=== PATIENT | male | born 1965 | race Caucasian/White ===

== ENCOUNTER → 2016-08-28 | Outpatient (CLI) | payer BC ==
[~2016-08-28] MED LIST: ASCA500 PO; CYAN10004 PO; METF500T5 PO; MULT-506 PO
[2016-08-28 13:15] LABS: ESTIMATED AVERAGE GLUCOSE 100 mg/dl; HA1C FLAG Normal (Normal)
== END | disposition home or self-care (01) ==
LOC: C.LABBFT 09:36
PROVIDERS: ATTEND Internal Medicine
DX: E11.65 Type 2 diabetes mellitus with hyperglycemia (principal)

== ENCOUNTER 2020-03-07 01:54 | Inpatient (IN) ==
[2020-03-07] MEDS ORDERED: ONDANSETRON INJ 2 MG/ML 2 ML VIAL IV STA (02:09)
[2020-03-07] MEDS ORDERED: HYDROmorphone INJ 1 MG/ML SYRINGE IV STA ×2 (02:09→04:20)
[2020-03-07] MEDS ORDERED: SODIUM CHLORIDE 0.9% 1000ML 1,000 ML IV ONE (02:09)
--- NOTE | 2020-03-07 02:15 | Emergency Department Note ---
Impression & Plan Calculus of proximal right ureter, Hydronephrosis, right, Intractable abdominal pain ED Provider Note Name: SUE GRAMAJO Age: 54 Sex: M Arrives Via: Walk-In Informant: Patient, ED Provider: Elías Corado MD Chief Complaint: Right flank pain Impression: Calculus of proximal right ureter Hydronephrosis, Right Intractable abdominal pain Medical Decision Making: Pleasant 54 yr old male with DMII, HTN, DARIO and remote renal colic history arrives acute severe right flank pain. CT obtained emergently with 11mm proximal ureteral stone with hydro. Requiring repetitive dosing of narcotics to get pain controlled. Labs good. No evidence infection nor dissection nor other acute intraabdominal issue. He will need hospitalization given intractable pain. Prior Medical Record and Triage/Nursing Notes reviewed by Me Additional history obtained from chart and Differentials:Renal colic, UTI, appendicitis, diverticulitis, mesenteric ischemia, aortic pathology, infections, inflammatory bowel disease, PUD, biliary pathology, as well as other pathologies. Vital Signs: reviewed and remarkable for HTN, improving with pain meds Interventions: Dilaudid 1mg IV x 2, Fentanyl 100mcg IV, Toradol 30mg IV, Zofran 4mg IV, NSS bolus Labs:Reviewed and remarkable for no significant abnormalities Imaging:[facility] Radiologist interpretation reviewed by me: 11mm prox right ureteral stone with right hydro Consults:Dr Bell Maier hospitalist Plan: Disposition:Hospitalization. Condition: Good Blood pressure:Normal.No Referral necessary Prescriptions:none PDMP: n/a History of Present Illness:54 male arrives for evaluation of right flank pain. Patient with history of DMII, HTN, DLP and remote history of renal colic. Notes 3 days ago had some mild fleeting right flank pain. Happened again a few times last few days. This evening severe sudden onset stabbing pain right flank. Radiates mildly RLQ. Associated nausea. No fevers, vomiting, cp, sob, cough, urinary/bowel changes, leg swelling, rashes nor other symptoms. No medications prior to arrival. Nothing makes better nor worse. Notes kidney stone several years ago though this seems worse than that. No history of aortic issues. Takes no blood thinners. Denies recent dehydration ROS: See above HPI for pertinent positives & negatives. A total of 10 systems reviewed and were otherwise negative. Past Medical History:DMII, HTN, DLP, Renal Colic Past Surgical History:Abdominal Hernia Repair Family History:Father DMII, Brother Renal Colic Social History:Lives with , retired, no tobacco/drugs, occasional etoh Home Medications:Vit C, Lisinopril, Metformin, Multivitamin, B-12 Allergies:NKDA Vitals:Blood Pressure: 203/113, Pulse 86, RR 18, T 37.2C, O2 97% on RA Physical Exam: GENERAL: Patient is very uncomfortable appearing and in severe distress. Pacing around room EYES: No scleral icterus, unremarkable pupils. ENT: Mucous membranes moist, no nasal congestion. NECK: No masses appreciated, nomeningismus, trachea is midline. RESPIRATORY: No dyspnea. Clear to auscultation and equal bilaterally. No wheeze, no rhonchi. CARDIOVASCULAR: Regular rate and rhythm.No murmurs, rubs, gallops appreciated. GASTROINTESTINAL: Abdomen soft, non-tender, no peritonitis.Bowel sounds positive.No masses appreciated. BACK: No midline tenderness, mild right CVA tenderness EXTREMITIES: Normal motion all extremities, no cyanosis, no edema. NEUROLOGIC: Alert and oriented, no acute motor or sensory deficits, no focal weakness, cranial nerves grossly intact. SKIN: No rash, no jaundice, no diaphoresis. PSYCH: Appropriate GCS: 15 ED Course: Times/Reassessments: Continue pain though does improve after meds Elías Corado MD Past Med/Surg History Medical History (Updated 03/07/20 @ 07:29 by Elías Corado MD) Right ankle sprain Surgical History H/O tooth extraction [place] teeth [phone] H/O umbilical hernia repair 2015 H/O vasectomy 1992 History of arthroscopic knee surgery left - 1997 S/P rotator cuff repair left- 2012 Family History Father Heart disease Diabetes Uncle Heart disease Myocardial infarction Grandfather Heart disease Brother Kidney stones Grandmother Breast cancer Social History Smoking Status: Former smoker Second Hand Exposure: Yes; Do You Dip or Chew Tobacco: No; Hx Alcohol Use: Yes Alcohol type: beer, wine and hard liquor Hx Substance Use: No Preferred Language: Spanish Communication Ability: Effective 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: No Beliefs That Will Affect Care: None marital status: Current Living Situation: Spouse current occupational status: retired current occupation: Retired [employer] Other Information That Helps Us Care for You: No Feels Safe at Home: Yes Safety Concerns: Feels Safe At This Time Allergies Allergies Allergy/AdvReac Type Severity Reaction Status Date / Time No Known Allergies Allergy Unverified 03/07/20 02:35 Home Meds Home Medications Medication Instructions Recorded Confirmed lancets #50 ea 10/09/19 10/09/19 lisinopril 10 mg PO DAILY 03/07/20 03/07/20 metformin 500 mg PO BID 03/07/20 03/07/20 multivitamin [Multiple Vitamin] 1 tab PO DAILY 03/07/20 03/07/20 sildenafil (pulm.hypertension) See Rx Instructions .ROUTE .COMPLEX 03/07/20 03/07/20 Results & Data (ED) Vital Signs Vital Signs - 24 hr 03/07/20 01:57 03/07/20 03:24 03/07/20 04:27 Temperature 37.2 C Temperature Source Oral Pulse Rate 86 Pulse Rate [Finger] 92 H 85 Pulse Rhythm Regular Pulse Strength Normal Respiratory Rate 18 18 18 Respiratory Effort / Characteristics Non-Labored Spontaneous Respiratory Depth Normal Respiratory Pattern Regular Blood Pressure 203/113 H Blood Pressure [Right Arm] 152/87 H 151/94 H Blood Pressure Mean 143 Blood Pressure Mean [Right Arm] 108 113 Blood Pressure Position Standing Pulse Oximetry 97 96 96 Oxygen Delivery Method Room Air Room Air Room Air Sepsis Recent Fever Within 48 Hours No Sepsis New/Unexplained Change in Mental Status No Sepsis Action Taken by Nursing No Action Required Laboratory Data Result diagrams: 03/07/20 02:13 03/07/20 02:13 Lab Results 03/07/20 03/07/20 03/07/20 Range/Units 02:13 02:13 03:50 WBC 6.81 (4.8-10.8) K/uL RBC 4.31 L (4.7-6.1) M/uL Hgb 14.5 (14.0-18.0) g/dL Hct 42.4 (42-52) % MCV 98.4 (80-100) fL MCH 33.6 (25-34) pg MCHC 34.2 (32-36) g/dL RDW Std Deviation 45.6 (36.4-46.3) fL RDW Coeff of Sabine 12.6 (11.5-14.5) % Plt Count 223 (130-400) K/uL MPV 9.8 (7.4-10.4) fL Immature Gran % (Auto) 0.1 % Neut % (Auto) 46.3 % Lymph % (Auto) 41.7 % Chambers % (Auto) 8.1 % Eos % (Auto) 3.5 % Baso % (Auto) 0.3 % Neut # (Auto) 3.15 (1.4-6.5) K/uL Lymph # (Auto) 2.84 (1.2-3.4) K/uL Chambers # (Auto) 0.55 (0.11-0.59) K/uL Eos # (Auto) 0.24 (0-0.5) K/uL Baso # (Auto) 0.02 (0-0.2) K/uL Immature Gran # (Auto) 0.01 (0.00-0.02) K/uL Sodium 140 (136-145) mmol/L Potassium 4.2 (3.5-5.1) mmol/L Chloride 106 (98-107) mmol/L Carbon Dioxide 30 (21-32) mmol/L Anion Gap 4.0 (3-11) BUN 18 (7-18) mg/dl Creatinine 1.36 (0.6-1.4) mg/dl Est Cr Clr Drug Dosing 74.0 ml/min Est GFR ( Amer) 67.9 Est GFR (Non-Af Amer) 58.6 BUN/Creatinine Ratio 13.0 (10-20) Glucose 185 H (70-99) mg/dl Calcium 9.1 (8.5-10.1) mg/dl Total Bilirubin 0.5 (0.2-1) mg/dl Direct Bilirubin (0-0.2) mg/dl AST 46 H (15-37) U/L ALT 70 (12-78) U/L Alkaline Phosphatase 90 (45-117) U/L Total Protein 8.1 (6.4-8.2) gm/dl Albumin 4.0 (3.4-5.0) gm/dl Lipase 159 (73-393) U/L Specimen Hemolysis Urine Color Yellow Urine Appearance Clear (Clear) Urine pH 5.5 (4.5-7.5) Ur Specific [place] 1.022 (1.000-1.030) Urine Protein 1+ H (Negative) Urine Glucose (UA) Negative (Negative) Urine Ketones Trace H (Negative) Urine Blood 3+ H (Negative) Urine Nitrite Negative (Negative) Urine Bilirubin Negative (Negative) Urine Urobilinogen Negative (Negative) Ur Leukocyte Esterase Negative (Negative) Urine WBC (Auto) 1-5 (0-5) /hpf Urine RBC (Auto) 10-30 H (0-4) /hpf U Hyaline Cast (Auto) 0 (0-5) /lpf U Epithel Cells (Auto) 0-5 (0-5) /lpf Urine Bacteria (Auto) Negative (Negative) Administered Medications Sodium Chloride (Nss 1000ml) 1,000 mls @ 125 mls/hr IV .Q8H GRZEGORZ Stop: 04/06/20 05:02 Last Admin: 03/07/20 05:44 Dose: 125 mls/hr Documented by: [id number] Insulin Aspart (Insulin Aspart 100 Units/Ml 3 Ml Pen) 0 units SC Q6 GRZEGORZ Stop: 04/06/20 05:59 Last Admin: 03/07/20 06:20 Dose: 2 units Documented by: [id number] Cosigned by: [id number] Discontinued Medications Fentanyl Citrate (Fentanyl Citrate 100 Mcg/2 Ml Vial) 100 mcg IV NOW STA Stop: 03/07/20 02:38 Last Admin: 03/07/20 02:42 Dose: 100 mcg Documented by: [id number] Hydromorphone HCl (Hydromorphone Inj 1 Mg/Ml Syringe) 1 mg IV NOW STA Stop: 03/07/20 02:10 Last Admin: 03/07/20 02:15 Dose: 1 mg Documented by: [id number] Hydromorphone HCl (Hydromorphone Inj 1 Mg/Ml Syringe) 1 mg IV NOW STA Stop: 03/07/20 04:21 Last Admin: 03/07/20 04:26 Dose: 1 mg Documented by: [id number] Sodium Chloride (Nss 1000ml) 1,000 mls @ 999 mls/hr IV .Q1H1M ONE Stop: 03/07/20 03:09 Last Infusion: 03/07/20 03:26 Dose: 0 mls/hr Documented by: [id number] Admin: 03/07/20 02:15 Dose: 999 mls/hr Documented by: [id number] Sodium Chloride (Nss 1000ml) 1,000 mls @ 125 mls/hr IV .Q8H GRZEGORZ Stop: 04/06/20 03:59 Last Infusion: 03/07/20 05:00 Dose: 0 mls/hr Documented by: [id number] Admin: 03/07/20 04:12 Dose: 125 mls/hr Documented by: [id number] Ketorolac Tromethamine (Ketorolac 30 Mg/Ml Vial) Confirm Administered Dose 30 mg .ROUTE .STK-MED ONE Stop: 03/07/20 03:04 Last Admin: 03/07/20 03:05 Dose: 30 mg Documented by: [id number] Ondansetron HCl (Ondansetron Inj 2 Mg/Ml 2 Ml Vial) 4 mg IV NOW STA Stop: 03/07/20 02:10 Last Admin: 03/07/20 02:15 Dose: 4 mg Documented by: [id number] Discharge Plan Visit Data Chief Complaint: Flank Pain ED Provider: Elías Corado Discharge Problem: Calculus of proximal right ureter, Hydronephrosis, right, Intractable abdominal pain Patient Disposition: Admitted As Inpatient Discharge Instructions Interventions: ED Discharge Assessment Last Done: 03/07/20 04:48
[2020-03-07 02:20] LABS: Basophils # (auto) 0.02 K/uL (0-0.2); Basophils % (auto) 0.3 %; Eosinophils # (auto) 0.24 K/uL (0-0.5); Eosinophils % (auto) 3.5 %; Hematocrit (blood only) 42.4 % (42-52); Hemoglobin 14.5 g/dL (14.0-18.0); Immature Granulocytes # (auto) 0.01 K/uL (0.00-0.02); Immature Granulocytes % (auto) 0.1 %; Lymphocytes # (auto) 2.84 K/uL (1.2-3.4); Lymphocytes % (auto) 41.7 %; Mean Corpuscular Hemoglobin 33.6 pg (25-34); Mean Corpuscular Hgb Conc 34.2 g/dL (32-36); Mean Corpuscular Volume 98.4 fL (80-100); Mean Platelet Volume 9.8 fL (7.4-10.4); Monocytes # (auto) 0.55 K/uL (0.11-0.59); Monocytes % (auto) 8.1 %; Neutrophils # (auto) 3.15 K/uL (1.4-6.5); Neutrophils % (auto) 46.3 %; Platelet Count 223 K/uL (130-400); RDW Coefficient of Variation 12.6 % (11.5-14.5); RDW Standard Deviation 45.6 fL (36.4-46.3); Red Blood Count 4.31 M/uL (4.7-6.1); White Blood Count 6.81 K/uL (4.8-10.8)
[2020-03-07] MEDS ORDERED: fentaNYL citrate 100 MCG/2 ML VIAL IV STA (02:37)
[2020-03-07 03:00] LABS: Bilirubin,Total 0.5 mg/dl (0.2-1); Calcium 9.1 mg/dl (8.5-10.1); Est GFR (African American) 67.9; Est GFR (Non-African American) 58.6; Potassium 4.2 mmol/L (3.5-5.1); Total Protein 8.1 gm/dl (6.4-8.2)
[2020-03-07] MEDS ORDERED: KETOROLAC 30 MG/ML VIAL ONE (03:03)
[2020-03-07 03:58] LABS: Appearance Urine Clear (Clear); Bacteria Urine Automated Negative (Negative); Bilirubin Urine Negative (Negative); Blood Urine 3+ (Negative); Cast Urine Automated 0 /lpf (0-5); Color Urine Yellow; Epithelial Cell Urine Auto 0-5 /lpf (0-5); Glucose Urine UA Negative (Negative); Ketones Urine Trace (Negative); Leukocyte Esterase Urine Negative (Negative); Nitrite Urine Negative (Negative); Protein Urine 1+ (Negative); Specific Gravity Urine 1.022 (1.000-1.030); Urobilinogen Urine Negative (Negative); pH Urine 5.5 (4.5-7.5)
[2020-03-07] MEDS ORDERED: SODIUM CHLORIDE 0.9% 1000ML 1,000 ML IV SCH (04:00)
[2020-03-07] MEDS ORDERED: ONDANSETRON INJ 2 MG/ML 2 ML VIAL IV PRN ×2 (05:03→11:05)
[2020-03-07] MEDS ORDERED: HYDROmorphone INJ 0.5 MG/0.5 ML SYR IV PRN (05:03)
[2020-03-07] MEDS ORDERED: ACETAMINOPHEN 325 MG TAB PO PRN (05:03)
[2020-03-07] MEDS ORDERED: KETOROLAC TROMETHAMINE 15 MG/ML VIAL IV PRN (05:03)
[2020-03-07] MEDS ORDERED: POLYETHYLENE (MIRALAX) 17 GM PACK PO PRN (05:03)
[2020-03-07] MEDS ORDERED: GLUCAGON FOR INJ 1 MG VIAL SQ PRN (05:30)
[2020-03-07] MEDS ORDERED: GLUCOSE 40% GEL 15 GM TUBE PO PRN (05:30)
[2020-03-07] MEDS ORDERED: GLUCOSE 10 TABS/TUBE PO PRN (05:30)
[2020-03-07] MEDS ORDERED: DEXTROSE 50% 50 ML SYRINGE IV PRN (05:30)
[2020-03-07] MEDS ORDERED: CARBOHYDRATES FOR HYPOGLYCEMIA PO PRN (05:30)
--- NOTE | 2020-03-07 05:34 | History and Physical Report ---
DATE OF ADMISSION: 03/07/2020 CHIEF COMPLAINT: Right flank pain. HISTORY OF PRESENT ILLNESS: This is a 54-year-old male with past medical history significant for type 2 diabetes, hypertension, obesity, history of kidney stones, who presents with a severe right flank pain and found to have kidney stone. The patient says since last he is having right flank pain on and off, but tonight he woke up with severe pain, could not stand it, so came to the ER. He had an episode of vomiting with the pain. With the pain medications and antiemetics, his symptoms improved. Currently resting comfortably and hemodynamically stable. Denies any fever, chills. No burning micturition, no hematuria. Normal bowel and bladder movements. No blood in the stools or black stools. Denies any headache, no dizziness, no blurred visions, no earache, no runny nose, no sore throat, no cough, no shortness of breath, no chest pain, no rash. Ambulates okay. ALLERGIES: No known drug allergies. PAST MEDICAL HISTORY: As mentioned above. PAST SURGICAL HISTORY: Arthroscopy of the left joint, oral surgery, left repair of shoulder cuff avulsion. MEDICATIONS: The patient is on lisinopril 10 mg p.o. daily, metformin 500 mg p.o. b.i.d. FAMILY HISTORY: Significant for brother had diabetes; father has diabetes, heart disease; maternal grandfather has diabetes; paternal grandfather has heart disease. SOCIAL HISTORY: , lives his with . Former smoker, smoked an average of 1 pack a day for 2 years. Alcohol, 7 drinks of alcohol per week. No drug use. REVIEW OF SYSTEMS: As per HPI. Rest of the review of systems negative. PHYSICAL EXAMINATION: GENERAL: The patient is obese, not in acute distress. VITAL SIGNS: Temperature 37.2, pulse 85, respiratory rate 18, blood pressure 151/94, and oxygen 96% on room air. HEENT: Pupils are equal, round, and reactive to light. NECK: No JVD, no neck masses. No carotid bruits. CARDIOVASCULAR: S1, S2 heard, regular rate and rhythm, no murmur, no gallop. RESPIRATORY SYSTEM: Normal AP diameter. No accessory muscle use. No wheezing, no crackles. ABDOMEN: Soft, bowel sounds present, nontender. No distention, no CVA tenderness. CENTRAL NERVOUS SYSTEM: Cranial nerves II-XII grossly intact. Nonfocal. EXTREMITIES: No edema, no erythema. LABORATORY DATA: WBC 6.8, hemoglobin 14.5, hematocrit 42.4, platelets 223. Sodium 140, potassium 4.2, chloride 106, bicarbonate 30, BUN 18, creatinine 1.3, serum glucose 185, calcium 9.1, total bilirubin 0.5, AST 46, ALT 70, alkaline phosphatase 90, lipase 159. Urinalysis, +3 blood. IMAGING DATA: CT of abdomen and pelvis, preliminary report shows 11 mm calculus in the upper ureteropelvic junction and mild hydronephrosis, nonobstructing 6 mm left renal calculus, 1.5 cm left adrenal gland myelolipoma. ASSESSMENT AND PLAN: This is a 54-year-old male who presents with right renal colic. 1. Right renal colic, a 11 mm right uteropelvic junction stone with mild hydronephrosis on the preliminary report of CAT scan. History of kidney stones in the past. UA does not show any infection, afebrile, hemodynamically stable. We will empirically put him on IV Rocephin, IV fluids, IV antiemetics, IV Dilaudid p.r.n., n.p.o. Consult urology for further recommendation. 2. Diabetes. Hold metformin. Placed on insulin sliding scale. Follow HbA1c level. Follow the blood sugars. 3. Hypertension. Continue lisinopril. 4. Obesity, needs counseling. 5. Deep venous thrombosis prophylaxis, sequential compression devices. DISPOSITION: Admit to medical floor. Expect to discharge home and follow with family doctor. Level 1 full code. MTDD
[2020-03-07] MEDS: SODIUM CHLORIDE 0.9% 1000ML 1,000 ML IV SCH ×2 (05:44→12:26)
[2020-03-07] MEDS ORDERED: Nursing to Pharmacy Communication SCH (05:45)
[2020-03-07] MEDS ORDERED: CIPROFLOXACIN / D5W 400 MG/200 ML BAG IV SCH (06:00)
[2020-03-07] MEDS: INSULIN ASPART 100 UNITS/ML 3 ML PEN SC SCH ×2 (06:20→12:23)
[2020-03-07] MEDS ORDERED: INSULIN ASPART 100 UNITS/ML 3 ML PEN SC SCH (07:30)
--- NOTE | 2020-03-07 08:35 | CT Scan Report ---
CT OF THE ABDOMEN AND PELVIS WITHOUT CONTRAST CLINICAL HISTORY: Right flank pain COMPARISON STUDY: CT of the abdomen and pelvis June 06, 2009. KUB July 06, 2009. TECHNIQUE: Axial images of the abdomen and pelvis were obtained without IV contrast. Images were revi ewed in the axial, sagittal, and coronal planes. Automated exposure control was utilized for the michael dy. A dose lowering technique was utilized adhering to the principles of ALARA. FINDINGS: A left lower lobe pulmonary nodule is unchanged since CT of June 06, 2009. This is blanca gn given stability. 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 A 1.1 cm calculus within t he upper moiety ureteropelvic junction results in mild right hydronephrosis. Note is made of a 6 mm c alculus within lower pole of the left kidney. A 1.6 cm left adrenal myelolipoma is unchanged. The rig ht adrenal gland, spleen and pancreas are unremarkable on unenhanced exam. Fatty infiltration of the liver is noted. There is no evidence for a bowel obstruction. The appendix is normal. Findings consis tent with umbilical hernia repair with mesh are noted. No evidence for a bowel obstruction. There are no suspicious osseous lesions. IMPRESSION: 1. Partially duplicated right renal collecting system with 1.1 cm calculus within the upper moiety ur eteropelvic junction which results in mild hydronephrosis. 2. 6 mm left renal calculus. 3. Fatty infiltration of the liver. ACT 112: Negative or not required by law. Electronically signed by: Obed Gooden M.D. 03/07/2020 8:33 AM
[2020-03-07] MEDS ORDERED: lisinopriL 10 MG TAB PO SCH (09:00)
[2020-03-07] MEDS ORDERED: MULTIVITAMIN TAB PO SCH (09:00)
[2020-03-07] MEDS ORDERED: cefTRIAXone SODIUM 2,000 MG in DEXTROSE 5% 50 ML IV SCH (09:00)
--- NOTE | 2020-03-07 09:58 | Urology Consultation ---
Date of Consultation March 07, 2020 Assessment & Plan (1) Calculus of proximal right ureter: 11 mm obstructing right proximal ureteral calculus Plan for cystoscopy right ureteral stent insertion now Cover with ciprofloxacin Likely discharge home this afternoon with possible outpatient surgery later in the week for definitive stone treatment History of Present Illness Attending Physician: Stephanie Nuno MD History of Present Illness 54-year-old diabetic male with a remote history of kidney stones who returned to the ER overnight with severe right renal colic Imaging revealed an 11 mm right UPJ calculus as well as a nonobstructive 6 mm left lower pole calculus He has a creatinine of 1.36 He is afebrile and hemodynamically stable He continues to have severe pain and nausea He has never previously required surgery for his kidney stones Allergies Allergy/AdvReac Type Severity Reaction Status Date / Time No Known Allergies Allergy Unverified 03/07/20 02:35 Home Medications Home Medications Medication Instructions Recorded Confirmed Type lancets #50 ea 10/09/19 10/09/19 History lisinopril 10 mg PO DAILY 03/07/20 03/07/20 History metformin 500 mg PO BID 03/07/20 03/07/20 History multivitamin [Multiple Vitamin] 1 tab PO DAILY 03/07/20 03/07/20 History sildenafil (pulm.hypertension) See Rx Instructions .ROUTE .COMPLEX 03/07/20 03/07/20 History Patient History Medical History (Updated 03/07/20 @ 09:56 by Jared Cárdenas MD) Recurrent kidney stones Right ankle sprain Surgical History H/O tooth extraction [place] teeth [phone] H/O umbilical hernia repair 2015 H/O vasectomy 1992 History of arthroscopic knee surgery left - 1997 S/P rotator cuff repair left- 2012 Family History Father Heart disease Diabetes Uncle Heart disease Myocardial infarction Grandfather Heart disease Brother Kidney stones Grandmother Breast cancer Social History Smoking Status: Former smoker Second Hand Exposure: Yes; Do You Dip or Chew Tobacco: No; Hx Alcohol Use: Yes Alcohol type: beer, wine and hard liquor Hx Substance Use: No Preferred Language: Mohawk Communication Ability: Effective Oracle Fusion 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 Required: No Beliefs That Will Affect Care: None marital status: Current Living Situation: Spouse current occupational status: retired 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 Other Information That Helps Us Care for You: No Feels Safe at Home: Yes Safety Concerns: Feels Safe At This Time Review of Systems Constitutional: no fever, no chills and no fatigue Eyes: no worsening vision Ear, Nose, Mouth, Throat: no facial pain and no pain with swallowing Respiratory: no cough and no dyspnea Cardiovascular: no chest pain and no palpitations Gastrointestinal: + abdominal pain and + nausea; no vomiting Genitourinary: no dysuria and no hematuria Musculoskeletal: no back pain Integumentary: no rash and no urticaria Neurologic: no gait abnormality and no unsteadiness Psychiatric: no behavioral changes and no depression Endocrine: no fatigue Results & Data ([facility]) Vital Signs (Past 12 Hours) Vital Signs Temp Pulse Pulse Resp BP BP BP 03/07/20 07:39 36.6 C 89 16 147/84 H 03/07/20 05:12 36.8 C 162/92 H 03/07/20 05:00 36.8 C 71 14 162/92 H 03/07/20 04:27 85 18 151/94 H 03/07/20 03:24 92 H 18 152/87 H 03/07/20 01:57 37.2 C 86 18 203/113 H Pulse Ox 03/07/20 07:39 96 03/07/20 05:12 03/07/20 05:00 94 03/07/20 04:27 96 03/07/20 03:24 96 03/07/20 01:57 97 PG Care Time/CCT Total # of Minutes Spent Total Time Spent with Patient: Total time spent is greater than 50% in coordin ation of care (as documented) at patient's floor/unit and/or counseling patient: Coding Level of Care Code 64467 Inpt Consult Level 4 Diagnoses Calculus of proximal right ureter N20.1
[2020-03-07] MEDS ORDERED: MIDAZOLAM HCL 1 MG/ML 2ML VIAL ONE (10:46)
[2020-03-07] MEDS ORDERED: LIDOCAINE HCL 2% 2 ML VIAL/AMP(20MG/ML) INFIL ONE (10:46)
[2020-03-07] MEDS ORDERED: PROPOFOL IV EMULSION 10 MG/ML 20 ML VIAL IV ONE (10:46)
[2020-03-07] MEDS ORDERED: fentaNYL citrate 100 MCG/2 ML VIAL ONE (10:46)
--- NOTE | 2020-03-07 11:04 | Anesthesiology Consultation ---
Date of Service March 07, 2020 Assessment & Plan ASA [id number] Proposed Anesthesia Anesthesia Type: MAC Risk / Benefits Reviewed With: PT / POA / Parent / Guardian, Accepts Plan and Informed Consent Obtained History Surgery Operation Date: 03/07/20 11:00 Proposed Procedures p Cystoscopy Retrograde - Jared Cárdenas MD Height/Weight Height: 5 ft 8.5 in Weight: 106 kg Allergies Allergy/AdvReac Type Severity Reaction Status Date / Time No Known Allergies Allergy Unverified 03/07/20 02:35 Medications Home Medications Medication Instructions Recorded Confirmed Last Taken lancets #50 ea 10/09/19 10/09/19 Unknown lisinopril 10 mg PO DAILY 03/07/20 03/07/20 Unknown metformin 500 mg PO BID 03/07/20 03/07/20 Unknown multivitamin [Multiple Vitamin] 1 tab PO DAILY 03/07/20 03/07/20 Unknown sildenafil (pulm.hypertension) See Rx Instructions .ROUTE .COMPLEX 03/07/20 03/07/20 Unknown Active Medications Generic Name Dose Route Start Last Admin Trade Name Freq PRN Reason Stop Dose Admin Sodium Chloride 1,000 mls @ 125 mls/hr 03/07/20 05:03 03/07/20 05:44 Nss 1000ml IV 04/06/20 05:02 125 mls/hr .Q8H GRZEGORZ Administration Ceftriaxone Sodium 2,000 mg/ 70 mls @ 100 mls/hr 03/07/20 09:00 03/07/20 09:31 Dextrose IV 03/17/20 08:59 Infused DAILY GRZEGORZ Infusion Protocol Insulin Aspart 0 units 03/07/20 06:00 03/07/20 06:20 Insulin Aspart 100 Units/Ml 3 Ml Pen SC 04/06/20 05:59 2 units Q6 GRZEGORZ Administration Ketorolac Tromethamine 15 mg 03/07/20 05:03 03/07/20 08:56 Ketorolac Tromethamine 15 Mg/Ml Vial IV 03/12/20 05:02 15 mg Q6H PRN Administration Pain Lisinopril 10 mg 03/07/20 09:00 03/07/20 08:18 Lisinopril 10 Mg Tab PO 04/06/20 08:59 10 mg DAILY GRZEGORZ Administration Multivitamins 1 tab 03/07/20 09:00 03/07/20 08:18 Multivitamin Tab PO 04/06/20 08:59 1 tab DAILY GRZEGORZ Administration NPO Date Last Intake of Fluids: 03/07/20 Time Last Intake of Fluids: 10:00 Last Intake of Fluids Comment: SIps- Per pt report Past Medical History Medical History Recurrent kidney stones Right ankle sprain Exercise / Class Metabolic Activity II 4-5 Yardwork/Stairs/Walk up hill Past Family History Family History Father Heart disease Diabetes Uncle Heart disease Myocardial infarction Grandfather Heart disease Brother Kidney stones Grandmother Breast cancer Past Surgical History Surgical History H/O tooth extraction [place] teeth [phone] H/O umbilical hernia repair 2015 H/O vasectomy 1992 History of arthroscopic knee surgery left - 1997 S/P rotator cuff repair left- 2012 Past Anesthesia History No Hx of Anesthesia Complications and No Family Hx of Anesthesia Complications History of PONV No Hx of PONV and No Hx of Motion Sickness Social History Smoking Status: Former smoker Do You Dip or Chew Tobacco: No Hx Alcohol Use: Yes Alcohol type: beer, wine and hard liquor alcohol intake frequency: a few times a month Hx Substance Use: No Review of Systems denies fever/cough/ colds/ chest pain/ SOB/ DARIO Constitutional: no fever and no chills Respiratory: no cough and no dyspnea denies DARIO Cardiovascular: no chest pain and no dyspnea on exertion Physical Exam Vital Signs Last Vital Signs Temp 36.6 C 03/07/20 07:39 Pulse 89 03/07/20 07:39 Resp 16 03/07/20 07:39 BP 147/84 H 03/07/20 07:39 Pulse Ox 96 03/07/20 07:39 ENMT Mouth: no TMJ abnormality and no dentition abnormality Thyromental Distance: > or= 3.5 Finger Breadths Mallampati Class: III Neck neck extension not limited Respiratory normal respiratory effort; no respiratory distress Auscultation: lungs clear to auscultation bilaterally Cardiovascular Rate/Rhythm: regular rate and regular rhythm Neurologic moves all extremities Psychiatric Orientation: alert and oriented x 3 Testing Laboratory Results 03/07/20 02:13 03/07/20 02:13 Urine Color Yellow 03/07/20 03:50 Urine Appearance Clear (Clear) 03/07/20 03:50 Urine pH 5.5 (4.5-7.5) 03/07/20 03:50 Ur Specific [place] 1.022 (1.000-1.030) 03/07/20 03:50 Urine Protein 1+ (Negative) H 03/07/20 03:50 Urine Glucose (UA) Negative (Negative) 03/07/20 03:50 Urine Ketones Trace (Negative) H 03/07/20 03:50 Urine Nitrite Negative (Negative) 03/07/20 03:50 Ur Leukocyte Esterase Negative (Negative) 03/07/20 03:50 Urine WBC (Auto) 1-5 /hpf (0-5) 03/07/20 03:50 Urine RBC (Auto) 10-30 /hpf (0-4) H 03/07/20 03:50 U Hyaline Cast (Auto) 0 /lpf (0-5) 03/07/20 03:50 U Epithel Cells (Auto) 0-5 /lpf (0-5) 03/07/20 03:50 Urine Bacteria (Auto) Negative (Negative) 03/07/20 03:50 03/07/20 05:45 POC Glucose 172 H
[2020-03-07] MEDS ORDERED: fentaNYL citrate 100 MCG/2 ML VIAL IV PRN (11:05)
[2020-03-07] MEDS ORDERED: ePHEDrine sulfate 50 MG/ML AMP IV PRN (11:05)
[2020-03-07] MEDS ORDERED: ATROPINE SULFATE 0.1 MG/ML 10ML SYR IV PRN (11:05)
[2020-03-07] MEDS ORDERED: HYDROmorphone INJ 2 MG/ML SYR/VIAL IV PRN (11:05)
[2020-03-07] MEDS ORDERED: DIATRIZOATE MEGLUMINE 30% 100ML VIAL INSTIL ONE (11:32)
--- NOTE | 2020-03-07 11:43 | Operative Report ---
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 Upon arrival, appropriate antibiotics and anesthesia were administered and the patient was placed in dorsal lithotomy position and prepped and draped in sterile fashion. To begin the case a 22 Peruvian cystoscope with 30 degree lens was passed per urethra. Inspection revealed healthy-appearing mucosa without stricture disease. He is moderately enlarged prostate with a relatively high bladder neck. I was able to navigate beyond this and inspect the bladder. There is no mucosal disease within the bladder. I turned my attention to the right ureteral orifice and cannulated it with a 5 Peruvian open-ended catheter and a sensor wire. This advanced to the kidney without difficulty. I could visualize an opacity in the presumed area of the stone. Interestingly, after placing this I noted a second opening just lateral to the ureteral orifice that I had catheterized. 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 I completed my stent placement in the ureter that I had cannulated and then I turned my attention to the second ureteral orifice. I intubated with a 5 Peruvian open-ended catheter and instilled some contrast. There was a complete duplication, no hydronephrosis of the lower pole moiety, stent has been placed successfully in the upper pole moiety. I decompressed the bladder and ended the case. He was taken to the PACU in stable condition. There were no complications. I attest to the content of the Intraoperative Record and any orders documented therein. Any exceptions are noted below.
--- NOTE | 2020-03-07 12:00 | Anesthesiology Progress Note ---
Date of Service March 07, 2020 Anesthesia Post Procedure Vital Signs Vital Signs: Temp Pulse Pulse Pulse Resp BP BP 03/07/20 11:50 36.6 C 71 16 167/87 H 03/07/20 11:40 36.6 C 75 16 164/95 H 03/07/20 07:39 36.6 C 89 16 147/84 H 03/07/20 05:12 36.8 C 162/92 H 03/07/20 05:00 36.8 C 71 14 162/92 H 03/07/20 04:27 85 18 03/07/20 03:24 92 H 18 03/07/20 01:57 37.2 C 86 18 203/113 H BP Pulse Ox 03/07/20 11:50 95 03/07/20 11:40 96 03/07/20 07:39 96 03/07/20 05:12 03/07/20 05:00 94 03/07/20 04:27 151/94 H 96 03/07/20 03:24 152/87 H 96 03/07/20 01:57 97 Pain Intensity Right Flank: Pain Intensity: 8 Transfer of Care Handoff Completed per policy Notes Mental Status: alert / awake / arousable and participated in evaluation Patient Amnestic to Procedure: Yes Nausea / Vomiting: adequately controlled Pain: adequately controlled Airway Patency, RR, SpO2: stable & adequate BP & HR: stable & adequate Hydration State: stable & adequate Anesthetic Complications: no major complications apparent and Pt Satisfied with anesthetic care
--- NOTE | 2020-03-07 12:15 | Fluoroscopy Report ---
FL retrograde includes kub CLINICAL HISTORY: RT SIDE CYSTO WITH STENT COMPARISON STUDY: CT of the abdomen and pelvis performed earlier today. FLUOROSCOPY TIME: 7.8 seconds. FLUOROSCOPIC IMAGES: 1 FINDINGS: Fluoroscopy was provided during right retrograde exam. Contrast within the right collecting system is noted. Suspected stent is noted projecting over upper pole moiety. IMPRESSION: Fluoroscopy provided during right retrograde exam with right ureteral stent insertion. ACT 112: Negative or not required by law. Electronically signed by: Obed Gooden M.D. 03/07/2020 12:13 PM
--- NOTE | 2020-03-07 12:48 | Communication Note ---
Date of Service: March 07, 2020 Patient admitted earlier today with right sided flank pain, nausea vomiting CT abdomen pelvis shows 11 mm right UPJ obstructed calculus with mild right-si ded hydronephrosis Patient was admitted to medical floor, urology evaluation appreciated Status post cystoscopy/right ureteric stent placement Patient seen in room 322 postoperatively, denies denies of any abdominal or flank pain or discomfort Had mild hematuria No nausea vomiting No fever or chills Discussed case with urology, patient is stable to be discharged home Patient given 1 g of IV Rocephin during surgery Will be discharged home with ciprofloxacin 250 mg twice daily for 2 more days Added Flomax PRN Pyridium for dysuria Patient is discharged home in stable condition Urology follow-up in 1 week for repeat cystoscopy, stent removal, lithotripsy Stephanie Nuno MD
--- NOTE | 2020-03-07 14:08 | Discharge Summary ---
Date of Service March 07, 2020 Admission HPI Per Admitting Provider DICTATED BY: Jono Luu MD DATE OF ADMISSION: 03/07/2020 CHIEF COMPLAINT: Right flank pain. HISTORY OF PRESENT ILLNESS: This is a 54-year-old male with past medical history significant for type 2 diabetes, hypertension, obesity, history of kidney stones, who presents with a severe right flank pain and found to have kidney stone. The patient says since last he is having right flank pain on and off, but tonight he woke up with severe pain, could not stand it, so came to the ER. He had an episode of vomiting with the pain. With the pain medications and antiemetics, his symptoms improved. Currently resting comfortably and hemodynamically stable. Denies any fever, chills. No burning micturition, no hematuria. Normal bowel and bladder movements. No blood in the stools or black stools. Denies any headache, no dizziness, no blurred visions, no earache, no runny nose, no sore throat, no cough, no shortness of breath, no chest pain, no rash. Ambulates okay. Principal Diagnosis Right sided kidney/ureteric stone s/p post stent placement Discharge Exam Constitutional WD/WN, vitals as above no acute distress Eyes PERRL, conjunctivae normal, anicteric sclerae ENMT external ear and nose normal, oropharynx normal Neck trachea midline, no thyromegaly Respiratory normal respiratory effort, lungs clear to auscultation normal respiratory effort; no respiratory distress Auscultation: lungs clear to auscultation bilaterally Cardiovascular RRR, no murmur, no edema Rate/Rhythm: regular rate and regular rhythm Gastrointestinal (Abdomen) Inspection/Auscultation: normal bowel sounds Percussion/Palpation: abdomen soft; abdomen nontender No flank pain Musculoskeletal no cyanosis or clubbing, extremities motor strength 5/5 Skin no rashes, warm and dry Neurologic PERRL, EOMI, accommodation nl, no face palsy, no dysarthria moves all extremities Psychiatric Orientation: alert and oriented x 3 Discharge Data Allergies Allergy/AdvReac Type Severity Reaction Status Date / Time No Known Allergies Allergy Unverified 03/07/20 02:35 Consultations 03/07/20 03:51 ED Decision to Admit Stat 03/07/20 05:03 Consult Case Management - Discharge Planning Routine 03/07/20 08:00 Consult Urology Routine Procedures Performed Operation Date: 03/07/20 11:00 Actual Procedures p Cystoscopy, Right Ureteral Stent Placement(Right) - Jared Cárdenas MD Ordered Studies 03/07/20 [place] retrograde includes kub Routine 03/07/20 02:09 CT abd pelvis wo con Urgent Hospital Course (1) Calculus of proximal right ureter: Patient admitted earlier today with right sided flank pain, nausea vomiting CT abdomen pelvis shows 11 mm right UPJ obstructed calculus with mild right- sided hydronephrosis Patient was admitted to medical floor, urology evaluation appreciated Status post cystoscopy/right ureteric stent placement Patient seen in room 322 postoperatively, denies denies of any abdominal or flank pain or discomfort Had mild hematuria No nausea vomiting No fever or chills Discussed case with urology, patient is stable to be discharged home Patient given 1 g of IV Rocephin during surgery Will be discharged home with ciprofloxacin 250 mg twice daily for 2 more days Added Flomax PRN Pyridium for dysuria Hypertension: Resume outpatient meds Patient is discharged home in stable condition Urology follow-up in 1 week for repeat cystoscopy, stent removal, lithotripsy Stephanie Nuno MD Total Time Total Time Spent Total Time Spent (In Minutes): 35 minutes Total Time Includes: Examination of the Patient, Discharge Planning, Medication Reconciliation and Communication With Other Providers Discharge Plan Discharge Items Patient Disposition: Home - Self-Care Reason For Visit: RENAL COLIC Discharge Diagnosis: Right sided kidney/ureteric stone s/p post ureteric stent placement Activity: Resume your previous activity Non-emergency contact: Primary Care Provider Call non-emergency contact if: you have any medication questions Follow-up/Referrals: Jared Cárdenas MD [Physician] - (Follow-up with urology in 1-2 weeks, office will call with appointment) Ethan Diez MD [Primary Care Provider] - (Hospital follow-up with family physician in a week) Diet: Heart Healthy Addtl Attending Provider Instructions: Follow-up with urology as per scheduled you are instructed to take antibiotic : Ciprofloxacin 250 mg 1 tablet twice daily ( start from tomorrow 03/08/20 ) for total 2 days only it is usually normal to see blood in urine and have pain on groin area due to stent irritation please come to ER if you having fever and chills, severe pain Pending Studies at Discharge: No Stand-Alone Forms: My [facility], Smoking Cessation Medications and DC Order Prescriptions: New ciprofloxacin HCl 250 mg tablet 250 mg PO BID 2 Days Qty: 4 RF: 0 phenazopyridine [Pyridium] 200 mg tablet 200 mg PO Q8H PRN (Reason: pain during urination ) Qty: 30 RF: 0 tamsulosin [Flomax] 0.4 mg capsule 0.4 mg PO DAILY Qty: 30 RF: 0 Continued (DME) lancets [OneTouch UltraSoft Lancets] Misc See Rx Instructions .ROUTE .MEDSUPPLY Qty: 50 RF: 0 metformin 500 mg tablet 500 mg PO BID RF: 0 lisinopril 10 mg tablet 10 mg PO DAILY RF: 0 sildenafil (pulm.hypertension) 20 mg tablet See Rx Instructions .ROUTE .COMPLEX RF: 0 multivitamin [Multiple Vitamin] Tablet 1 tab PO DAILY RF: 0 Discharge Orders: Discharge Order (Routine); Ordered 03/07/20 Ordered By: Stephanie Nuno Admission Data Admit Date/Time: 03/07/20 04:34 Attending Provider: Stephanie Nuno Admit Provider: Jono Luu Primary Care Provider: Ethan Diez Other Providers: Jono Luu ; Jared Cárdenas
[2020-03-07] MEDS ORDERED: TAMSULOSIN HCL 0.4 MG CAP PO ONE (14:15)
[2020-03-07] MEDS ORDERED: lisinopriL 10 MG TAB PO ONE (14:30)
== END 2020-03-07 18:40 | disposition home or self-care (01) | DRG 661 ==
LOC: ED 01:54 → 3E 04:34

== ENCOUNTER 2021-01-01 21:31 | Inpatient (IN) ==
[2021-01-01] MEDS ORDERED: SODIUM CHLORIDE 0.9% 500 ML IV STA (21:37)
[2021-01-01] MEDS ORDERED: KETOROLAC TROMETHAMINE 15 MG/ML VIAL IV STA (21:37)
--- NOTE | 2021-01-01 21:51 | Emergency Department Note ---
History of Present Illness General Chief complaint: Kidney Stone Stated complaint: LEFT SIDED ABD PAIN,SX NOT BETTER,WORSE Time Seen by Provider: 01/01/21 21:34 History of Present Illness Maximum Pain Intensity: 10 This 55-year-old with known kidney stones and follows with Dr. Cárdenas presents to the ER complaining of worsening left flank pain Location: Left flank Quality: Painful Severity: Moderate Duration: Past few days Timing: Started the other day Context: Pain got worse and came in Modifying factors: better with nothing; worse with nothing Patient states the pain is getting worse. Pain meds are not helping. He has required lithotripsy and stent placement in the past. Patient denies chest pain, dyspnea, fevers, flulike illness. Home Medications Medication Instructions Recorded Confirmed Type lancets #50 ea 10/09/19 01/01/21 History metformin 500 mg PO BID 03/07/20 01/01/21 History multivitamin 1 tab PO QAM 03/07/20 01/01/21 History sildenafil (pulm.hypertension) 20 mg PO UD 03/07/20 01/01/21 History tamsulosin [Flomax] 0.4 mg PO QAM 03/10/20 01/01/21 History cyanocobalamin (vitamin B-12) 1,000 mcg PO QAM 03/29/20 01/01/21 History ascorbic acid (vitamin C) [Vitamin 500 mg PO DAILY 01/01/21 01/01/21 History C] lisinopril 20 mg PO DAILY 01/01/21 01/01/21 History Allergies Allergy/AdvReac Type Severity Reaction Status Date / Time No Known Allergies Allergy Verified 01/01/21 00:18 Past Med/Surg History Medical History (Updated 01/02/21 @ 00:33 by Lino Ivan MD) Diabetes mellitus, type 2 Hypertension Kidney stones Sleep apnea CPAP Surgical History H/O eye surgery LEFT (METAL REMOVED) H/O umbilical hernia repair H/O vasectomy History of arthroscopic knee surgery LEFT History of colonoscopy History of lithotripsy History of tonsillectomy S/P rotator cuff repair left [place] teeth removed Family History Father Diabetes Heart disease Uncle Heart disease Myocardial infarction Grandfather Heart disease Brother Kidney stones Grandmother Breast cancer Father Family history of diabetes mellitus Grandfather (Maternal) Family history of diabetes mellitus Grandfather (Paternal) Family history of diabetes mellitus Social History Smoking Status: Never smoker 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); Hx Alcohol Use: Yes Alcohol type: beer, wine and hard liquor Hx Substance Use: No Preferred Language: Serbian Communication Ability: Effective Evening Or Night Nurse Supervisor Required: No Beliefs That Will Affect Care: None marital status: Current Living Situation: Spouse current occupational status: retired 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 Feels Safe at Home: Yes Assistive Devices: Glasses Review of Systems A total of 10 systems reviewed and were otherwise negative Physical Exam Vital Signs Vital Signs - 24 hr 01/01/21 21:32 01/01/21 22:47 01/01/21 23:00 Temperature 37.2 C Temperature Source Temporal Artery Scan Pulse Rate 93 H 89 87 Respiratory Rate 18 22 18 Respiratory Effort / Characteristics Non-Labored Spontaneous Respiratory Depth Normal Respiratory Pattern Regular Blood Pressure 205/103 H 154/82 H 158/83 H Blood Pressure Mean 137 106 108 Blood Pressure Position Sitting Pulse Oximetry 97 Oxygen Delivery Method Room Air Sepsis Recent Fever Within 48 Hours No Sepsis New/Unexplained Change in Mental Status No Sepsis Action Taken by Nursing No Action Required 01/01/21 23:46 Temperature Temperature Source Pulse Rate 78 Respiratory Rate 15 Respiratory Effort / Characteristics Respiratory Depth Respiratory Pattern Blood Pressure 179/84 H Blood Pressure Mean 115 Blood Pressure Position Pulse Oximetry Oxygen Delivery Method Sepsis Recent Fever Within 48 Hours Sepsis New/Unexplained Change in Mental Status Sepsis Action Taken by Nursing VITALS: Vitals are noted on the nurse's note and reviewed by myself. Vital signs stable. GENERAL: Pleasant male pacing the room who appears in pain, in no acute distress, nondiaphoretic, well-developed well-nourished. SKIN: Capillary reflex less than 2 seconds. HEENT: Normocephalic. PERRLA. EOMI. Nares patent. Mucous membranes moist. Neck is supple without nuchal rigidity. HEART: Regular rate and rhythm LUNGS: Clear to auscultation bilaterally without wheezes, rales or rhonchi. No retractions or accessory muscle use. ABDOMEN: Positive bowel sounds x 4. Normal tympanic percussion. Soft, nontender, without masses or organomegaly. Castro sign negative. No guarding or rebound tenderness. No CVA tenderness MUSCULOSKELETAL: No gross musculoskeletal defects. NEURO: Patient was alert and oriented to person place and time. No focal neurological deficits. Course Administered Medications Discontinued Medications Sodium Chloride (Nss) 500 mls @ 999 mls/hr IV .Q31M STA Stop: 01/01/21 22:07 Last Infusion: 01/01/21 23:50 Dose: 0 mls/hr Documented by: [id number] Admin: 01/01/21 22:10 Dose: 999 mls/hr Documented by: [id number] Ketorolac Tromethamine (Ketorolac Tromethamine 15 Mg/Ml Vial) 10 mg IV NOW STA Stop: 01/01/21 21:38 Last Admin: 01/01/21 22:09 Dose: 10 mg Documented by: [id number] Lisinopril (Lisinopril 20 Mg Tab) 20 mg PO NOW STA Stop: 01/01/21 22:45 Last Admin: 01/01/21 23:48 Dose: 20 mg Documented by: [id number] Tamsulosin HCl (Tamsulosin Hcl 0.4 Mg Cap) 0.4 mg PO NOW ONE Stop: 01/01/21 23:04 Last Admin: 01/01/21 23:15 Dose: 0.4 mg Documented by: [id number] Medical Decision Making Medical Records Attestation: I reviewed the patient's medical records. Home Medications Current Medication List: was personally reviewed by me Laboratory Data Attestation: I reviewed the patient's lab results. Result diagrams: 01/01/21 22:04 01/01/21 22:04 Lab Results 01/01/21 01/01/21 01/01/21 Range/Units 22:04 22:04 22:10 WBC 10.01 (4.8-10.8) K/uL RBC 4.12 L (4.7-6.1) M/uL Hgb 13.5 L (14.0-18.0) g/dL Hct 39.1 L (42-52) % MCV 94.9 (80-100) fL MCH 32.8 (25-34) pg MCHC 34.5 (32-36) g/dL RDW Std Deviation 43.3 (36.4-46.3) fL RDW Coeff of Sabine 12.6 (11.5-14.5) % Plt Count 186 (130-400) K/uL MPV 9.8 (7.4-10.4) fL Sodium 138 (136-145) mmol/L Potassium 4.0 (3.5-5.1) mmol/L Chloride 105 (98-107) mmol/L Carbon Dioxide 30 (21-32) mmol/L Anion Gap 3.0 (3-11) BUN 17 (7-18) mg/dl Creatinine 1.32 (0.6-1.4) mg/dl Est Cr Clr Drug Dosing 76.8 ml/min Est GFR ( Amer) 69.9 ml/min Est GFR (Non-Af Amer) 60.3 ml/min BUN/Creatinine Ratio 12.7 (10-20) Glucose 189 H (70-99) mg/dl Calcium 9.1 (8.5-10.1) mg/dl Magnesium 2.2 (1.8-2.4) mg/dl Total Bilirubin 0.6 (0.2-1) mg/dl Direct Bilirubin 0.2 (0-0.2) mg/dl AST 43 H (15-37) U/L ALT 89 H (12-78) U/L Alkaline Phosphatase 81 (45-117) U/L Total Protein 7.8 (6.4-8.2) gm/dl Albumin 4.0 (3.4-5.0) gm/dl Urine Color Urine Appearance (Clear) Urine pH (4.5-7.5) Ur Specific [place] (1.000-1.030) Urine Protein (Negative) Urine Glucose (UA) (Negative) Urine Ketones (Negative) Urine Blood (Negative) Urine Nitrite (Negative) Urine Bilirubin (Negative) Urine Urobilinogen (Negative) Ur Leukocyte Esterase (Negative) Urine WBC (Auto) (0-5) /hpf Urine RBC (Auto) (0-4) /hpf U Hyaline Cast (Auto) (0-5) /lpf U Epithel Cells (Auto) (0-5) /lpf Urine Bacteria (Auto) (Negative) COVID-19 Eval Order Covid19 at [facility] SARS-CoV-2 (PCR) (Negative) 01/01/21 01/01/21 Range/Units 22:10 23:45 WBC (4.8-10.8) K/uL RBC (4.7-6.1) M/uL Hgb (14.0-18.0) g/dL Hct (42-52) % MCV (80-100) fL MCH (25-34) pg MCHC (32-36) g/dL RDW Std Deviation (36.4-46.3) fL RDW Coeff of [place]ine (11.5-14.5) % Plt Count (130-400) K/uL MPV (7.4-10.4) fL Sodium (136-145) mmol/L Potassium (3.5-5.1) mmol/L Chloride (98-107) mmol/L Carbon Dioxide (21-32) mmol/L Anion Gap (3-11) BUN (7-18) mg/dl Creatinine (0.6-1.4) mg/dl Est Cr Clr Drug Dosing ml/min Est GFR ( Amer) ml/min Est GFR (Non-Af Amer) ml/min BUN/Creatinine Ratio (10-20) Glucose (70-99) mg/dl Calcium (8.5-10.1) mg/dl Magnesium (1.8-2.4) mg/dl Total Bilirubin (0.2-1) mg/dl Direct Bilirubin (0-0.2) mg/dl AST (15-37) U/L ALT (12-78) U/L Alkaline Phosphatase (45-117) U/L Total Protein (6.4-8.2) gm/dl Albumin (3.4-5.0) gm/dl Urine Color Dark Yellow Urine Appearance Clear (Clear) Urine pH 6.5 (4.5-7.5) Ur Specific [place] 1.023 (1.000-1.030) Urine Protein 2+ H (Negative) Urine Glucose (UA) Trace H (Negative) Urine Ketones Trace H (Negative) Urine Blood 3+ H (Negative) Urine Nitrite Negative (Negative) Urine Bilirubin Negative (Negative) Urine Urobilinogen Negative (Negative) Ur Leukocyte Esterase Negative (Negative) Urine WBC (Auto) 1-5 (0-5) /hpf Urine RBC (Auto) >30 H (0-4) /hpf U Hyaline Cast (Auto) 0 (0-5) /lpf U Epithel Cells (Auto) 10-20 H (0-5) /lpf Urine Bacteria (Auto) Negative (Negative) COVID-19 Eval Order SARS-CoV-2 (PCR) NEGATIVE (Negative) Imaging Data Attestation: I personally reviewed and interpreted this imaging study as follows: MDM Narrative Prior records/ancillary studies reviewed. Triage Nursing notes reviewed. Additional history obtained from the family. The patient's history was concerning for left flank pain. Differential diagnosis: Etiologies such as renal colic, appendicitis, diverticulitis, mesenteric ischemia, aortic pathology, infections, inflammatory bowel disease, PUD, biliary pathology, UTI, as well as others were entertained. Physical examination findings: As above. ER treatment provided: Toradol, IV fluids On reassessment the patient felt better. Diagnostic interpretation by me: The labs revealed no leukocytosis. Urinalysis revealed There was no sign of UTI from last night's visit. Mild hyperglycemia w/o DKA. Imaging studies: CT ABDOMEN & PELVIS Without Contrast: Comparison to March 07, 2020 There are 3 left renal lower pole calculi measuring 4, 5, and 6 mmin diameter. There is mild left hydronephrosis and slight hyperdensityof the left renal pelvis compared to the right which could represent hematuria. There is a 2 mmcalcification in the left retroperitoneumwhich could represent incompletely obstructing ureteral calculus versus retroperitoneal phlebolith. This is newsince previous. There is fattyinfiltration of the liver and hepatomegalywith the liver measuring 20 cmcraniocaudad. No focal liver lesion is seen. The gallbladder, spleen, pancreas, adrenal glands, and right kidneyare within normal limits. Bowel loops are nondilated. No acute inflammatorychanges are seen involving the bowel. Skeletal structures showspondylolysis at L5 and severe degenerative disc disease L5-S1with grade 1 spondylolisthesis. Radiologist: Rao Fuentes MD Consultation: A consultation was placed with the hospitalist. The case was discussed and diagnostics were reviewed. The patient was evaluated in the ER for further treatment. It appears that the patient has isolated renal colic from a left sided stone. Pain persisted. This is his second visit. Medicine was consulted. He will be evaluated for admission. By the evaluation outlined above emergent etiologies such as appendicitis, diverticulitis, mesenteric ischemia, aortic pathology, infections, inflammatory bowel disease, PUD, biliary pathology, UTI, as well as others were deemed relatively unlikely. The pt informed about the findings as listed above. All questions were answered and pleased with the treatment. The chart was completed utilizing [email or web address] Speech voice recognition software. Grammatical errors, random word insertions, pronoun errors, and incomplete sentences are an occassional consequence of this system due to software limitations, ambient noise, and hardware issues. Any formal questions or concerns about the content, text, or information contained within the body of this dictation should be directly addressed to the physician medical assistant for clarification. Impression & Plan Left flank pain, Ureterolithiasis Discharge Plan Visit Data Chief Complaint: Kidney Stone Stated Complaint: LEFT SIDED ABD PAIN,SX NOT BETTER,WORSE ED Provider: Félix Adams ED Midlevel Provider: Olga Thompson Discharge Problem: Left flank pain, Ureterolithiasis Patient Disposition: Admitted As Inpatient Condition: Good Forms Stand Alone Forms: [employer] Prescriptions Prescriptions: No Action (DME) lancets [OneTouch UltraSoft Lancets] Misc See Rx Instructions .ROUTE .MEDSUPPLY Qty: 50 RF: 0 metformin 500 mg tablet 500 mg PO BID RF: 0 sildenafil (pulm.hypertension) 20 mg tablet 20 mg PO UD RF: 0 multivitamin Tablet 1 tab PO QAM RF: 0 tamsulosin [Flomax] 0.4 mg capsule 0.4 mg PO QAM RF: 0 cyanocobalamin (vitamin B-12) 1,000 mcg Tablet 1,000 mcg PO QAM RF: 0 lisinopril 20 mg tablet 20 mg PO DAILY RF: 0 ascorbic acid (vitamin C) [Vitamin C] 500 mg Tablet 500 mg PO DAILY RF: 0 Referrals Referrals: Ethan Diez MD [Primary Care Provider] -
[2021-01-01 22:13] LABS: Hematocrit (blood only) 39.1 % (42-52); Hemoglobin 13.5 g/dL (14.0-18.0); Mean Corpuscular Hemoglobin 32.8 pg (25-34); Mean Corpuscular Hgb Conc 34.5 g/dL (32-36); Mean Corpuscular Volume 94.9 fL (80-100); Mean Platelet Volume 9.8 fL (7.4-10.4); Platelet Count 186 K/uL (130-400); RDW Coefficient of Variation 12.6 % (11.5-14.5); RDW Standard Deviation 43.3 fL (36.4-46.3); Red Blood Count 4.12 M/uL (4.7-6.1); White Blood Count 10.01 K/uL (4.8-10.8)
[2021-01-01 22:31] LABS: BUN Creatinine Ratio 12.7 (10-20); Calcium 9.1 mg/dl (8.5-10.1); Creatinine Clr Calc Pharmacy 76.8 ml/min; Est GFR (African American) 69.9 ml/min; Est GFR (Non-African American) 60.3 ml/min
[2021-01-01] MEDS ORDERED: lisinopril 20 MG TAB PO STA (22:44)
[2021-01-01] MEDS ORDERED: TAMSULOSIN HCL 0.4 MG CAP PO ONE (23:03)
[2021-01-01 23:23] LABS: Magnesium 2.2 mg/dl (1.8-2.4)
[2021-01-01 23:27] LABS: Bilirubin Direct 0.2 mg/dl (0-0.2); Bilirubin,Total 0.6 mg/dl (0.2-1); Total Protein 7.8 gm/dl (6.4-8.2)
[2021-01-01] MEDS ORDERED: oxyCODONE HCL IR 5 MG TAB (IMMEDIATE RELEASE) PO PRN (23:41)
[2021-01-01] MEDS ORDERED: PROMETHAZINE HCL 12.5 MG in SODIUM CHLORIDE 0.9% 50 ML IV PRN (23:41)
--- NOTE | 2021-01-01 23:58 | History & Physical Report ---
Date of Service January 01, 2021 Assessment & Plan (1) Asymptomatic hypertensive urgency: Secondary to renal colic from recurrent obstructive uropathy New onset anemia possibly from hematuria DM2 on oral medications, well-controlled as of recent outpatient hemoglobin A1c of 20 January 2020 DARIO on CPAP past tobacco abuse Medical telemetry Analgesia Facilitate home BP meds, may need dose titration Continue Flomax, strain urine Urology consult Re: Obstructive uropathy N.p.o. until patient seen by Urology in a.m. in anticipation of procedure Basal insulin adjusted for n.p.o. status, ISS BG goal 1 10-1 40, carb count coverage once patient eating, update hemoglobin A1c DVT prophylaxis with SCDs Re: Hematuria Full code Patient requesting updates from providers. Ms. Kiki Ferrera, contact #[phone]. Text document was generated using Keng[employer] voice recognition software. It may contain grammatical or spelling errors. Kindly contact undersigned for clarification of any documentation item in question. History of Present Illness Chief Complaint: Worsening left flank pain Primary Care Provider: Ethan Diez MD History obtained from patient, family, and records. Medical history significant for hypertension, hyperlipidemia, DM2 on oral medications, DARIO on CPAP, urolithiasis, past tobacco abuse. Last confinement February 2020 for right ureteric stone status post stent placement. Yesterday morning patient noted achy left flank pain reminiscent of kidney stones. No fever, no chills. Patient brought to ER by for evaluation. Central echogenic nodules on the right kidney possible complex cysts. No hydronephrosis or evidence of ureteral obstruction. Patient sent home. At home, patient noted worsening discomfort followed by hematuria, and emesis. No chest pain, no S OB, no headache. No fever, no chills. Patient returned to ER for evaluation. 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 Allergies Allergy/AdvReac Type Severity Reaction Status Date / Time No Known Allergies Allergy Verified 01/01/21 00:18 Home Medications Medication Instructions Recorded Confirmed Type lancets #50 ea 10/09/19 01/01/21 History metformin 500 mg PO BID 03/07/20 01/01/21 History multivitamin 1 tab PO QAM 03/07/20 01/01/21 History sildenafil (pulm.hypertension) 20 mg PO UD 03/07/20 01/01/21 History tamsulosin [Flomax] 0.4 mg PO QAM 03/10/20 01/01/21 History cyanocobalamin (vitamin B-12) 1,000 mcg PO QAM 03/29/20 01/01/21 History ascorbic acid (vitamin C) [Vitamin 500 mg PO DAILY 01/01/21 01/01/21 History C] lisinopril 20 mg PO DAILY 01/01/21 01/01/21 History Past Med/Surg History Medical History (Updated 01/02/21 @ 00:33 by Lino Ivan MD) Diabetes mellitus, type 2 Hypertension Kidney stones Sleep apnea CPAP Surgical History H/O eye surgery LEFT (METAL REMOVED) H/O umbilical hernia repair H/O vasectomy History of arthroscopic knee surgery LEFT History of colonoscopy History of lithotripsy History of tonsillectomy S/P rotator cuff repair left [place] teeth removed Family History Father Diabetes Heart disease Uncle Heart disease Myocardial infarction Grandfather Heart disease Brother Kidney stones Grandmother Breast cancer Father Family history of diabetes mellitus Grandfather (Maternal) Family history of diabetes mellitus Grandfather (Paternal) Family history of diabetes mellitus Social History Smoking Status: Never smoker Second Hand Exposure: Yes (AT WORK [employer] IN THE PAST); Hx Alcohol Use: Yes Alcohol type: beer, wine and hard liquor Hx Substance Use: No Preferred Language: Spanish Communication Ability: Effective Retirement Plan Counselor Required: No Beliefs That Will Affect Care: None marital status: Current Living Situation: Spouse current occupational status: retired 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 Feels Safe at Home: Yes Assistive Devices: Glasses Review of Systems Review of Systems: As per HPI, all 10 systems reviewed, all other ROS negative Physical Exam Physical Exam: GENERAL: Comfortable, pleasant, obese, no respiratory distress SKIN: Normal color, warm HEENT: Alopecia, [place] palpebral conjunctivae, no ptosis, dry buccal mucosa NECK : Supple, short neck, no tenderness CHEST : CTA, no tenderness HEART : RRR, no obvious murmurs ABDOMEN: Some distention, nontender BACK : Minimal left flank tenderness EXTREMITIES : No LE swelling/tenderness, no other conspicuous deformities noted NEUROLOGIC : Coherent, no facial asymmetry, no other gross focality Results & Data Results & Data ([facility]) Vital Signs (Past 12 Hours) Vital Signs Temp Pulse Resp BP Pulse Ox 01/01/21 23:46 78 15 179/84 H 01/01/21 23:00 87 18 158/83 H 01/01/21 22:47 89 22 154/82 H 01/01/21 21:32 37.2 C 93 H 18 205/103 H 97 Laboratory Results Laboratory Results WBC 10.01 K/uL (4.8-10.8) 01/01/21 22:04 RBC 4.12 M/uL (4.7-6.1) L 01/01/21 22:04 Hgb 13.5 g/dL (14.0-18.0) L 01/01/21 22:04 Hct 39.1 % (42-52) L 01/01/21 22:04 MCV 94.9 fL (80-100) 01/01/21 22:04 MCH 32.8 pg (25-34) 01/01/21 22:04 MCHC 34.5 g/dL (32-36) 01/01/21 22:04 RDW Std Deviation 43.3 fL (36.4-46.3) 01/01/21 22:04 RDW Coeff of [place]ine 12.6 % (11.5-14.5) 01/01/21 22:04 Plt Count 186 K/uL (130-400) 01/01/21 22:04 MPV 9.8 fL (7.4-10.4) 01/01/21 22:04 Sodium 138 mmol/L (136-145) 01/01/21 22:04 Potassium 4.0 mmol/L (3.5-5.1) 01/01/21 22:04 Chloride 105 mmol/L (98-107) 01/01/21 22:04 Carbon Dioxide 30 mmol/L (21-32) 01/01/21 22:04 Anion Gap 3.0 (3-11) 01/01/21 22:04 BUN 17 mg/dl (7-18) 01/01/21 22:04 Creatinine 1.32 mg/dl (0.6-1.4) 01/01/21 22:04 Est Cr Clr Drug Dosing 76.8 ml/min 01/01/21 22:04 Est GFR ( Amer) 69.9 ml/min 01/01/21 22:04 Est GFR (Non-Af Amer) 60.3 ml/min 01/01/21 22:04 BUN/Creatinine Ratio 12.7 (10-20) 01/01/21 22:04 Glucose 189 mg/dl (70-99) H 01/01/21 22:04 Calcium 9.1 mg/dl (8.5-10.1) 01/01/21 22:04 Magnesium 2.2 mg/dl (1.8-2.4) 01/01/21 22:04 Total Bilirubin 0.6 mg/dl (0.2-1) 01/01/21 22:04 Direct Bilirubin 0.2 mg/dl (0-0.2) 01/01/21 22:04 AST 43 U/L (15-37) H 01/01/21 22:04 ALT 89 U/L (12-78) H 01/01/21 22:04 Alkaline Phosphatase 81 U/L (45-117) 01/01/21 22:04 Total Protein 7.8 gm/dl (6.4-8.2) 01/01/21 22:04 Albumin 4.0 gm/dl (3.4-5.0) 01/01/21 22:04 COVID-19 Eval Order Covid19 at [facility] 01/01/21 22:10 SARS-CoV-2 (PCR) NEGATIVE (Negative) 01/01/21 22:[address] abdomen pelvis initial read: There are 3 left renal lower pole calculi measuring 4, 5, and 6 mm in diameter. There is mild left hydronephrosis and slight hyperdensity of the left renal pelvis compared to the right which could represent hematuria. There is a 2 mm calcification in the left retroperitoneum which could represent incompletely obstructing ureteral calculus versus retroperitoneal phlebolith. This is new since previous. There is fatty infiltration of the liver and hepatomegaly with the liver measuring 20 cm craniocaudad. No focal liver lesion is seen. The gallbladder, spleen, pancreas, adrenal glands, and right kidney are within normal limits. Bowel loops are nondilated. No acute inflammatory changes are seen involving the bowel. Skeletal structures show spondylolysis at L5 and severe degenerative disc disease L5-S1 with grade 1 spondylolisthesis.
[2021-01-02 00:11] LABS: Appearance Urine Clear (Clear); Bacteria Urine Automated Negative (Negative); Bilirubin Urine Negative (Negative); Blood Urine 3+ (Negative); Cast Urine Automated 0 /lpf (0-5); Color Urine Dark Yellow; Glucose Urine UA Trace (Negative); Ketones Urine Trace (Negative); Leukocyte Esterase Urine Negative (Negative); Nitrite Urine Negative (Negative); Protein Urine 2+ (Negative); RBC Urine Automated >30 /hpf (0-4); Specific Gravity Urine 1.023 (1.000-1.030); Urobilinogen Urine Negative (Negative); pH Urine 6.5 (4.5-7.5)
[2021-01-02] MEDS ORDERED: GLUCOSE 40% GEL 15 GM TUBE PO PRN (01:42)
[2021-01-02] MEDS ORDERED: ACETAMINOPHEN 325 MG TAB PO PRN (01:42)
[2021-01-02] MEDS ORDERED: GLUCOSE 10 TABS/TUBE PO PRN (01:42)
[2021-01-02] MEDS ORDERED: GLUCAGON FOR INJ 1 MG VIAL SQ PRN (01:42)
[2021-01-02] MEDS ORDERED: CARBOHYDRATES FOR HYPOGLYCEMIA PO PRN (01:42)
[2021-01-02] MEDS ORDERED: DEXTROSE 50% 50 ML SYRINGE IV PRN (01:42)
[2021-01-02] MEDS ORDERED: LORazepam 0.5 MG/1 ML VIAL IV PRN (01:42)
[2021-01-02] MEDS: MoRPHine SULFATE 4 MG/ML 1 ML CARP\\VIAL IV PRN ×2 (02:08→06:08)
[2021-01-02] MEDS ORDERED: INSULIN GLARGINE SOLOSTAR 100 UNITS/ML 3 ML PEN SC STA (02:08)
[2021-01-02] MEDS: INSULIN ASPART 100 UNITS/ML 3 ML PEN SC SCH ×5 (02:32→20:47)
[2021-01-02] MEDS: SODIUM CHLORIDE 0.9% 1000ML 1,000 ML IV SCH ×2 (02:33→16:00)
[2021-01-02 06:36] LABS: Basophils # (auto) 0.02 K/uL (0-0.2); Basophils % (auto) 0.2 %; Eosinophils # (auto) 0.19 K/uL (0-0.5); Eosinophils % (auto) 2.4 %; Hematocrit (blood only) 38.3 % (42-52); Hemoglobin 13.1 g/dL (14.0-18.0); Immature Granulocytes # (auto) 0.02 K/uL (0.00-0.02); Immature Granulocytes % (auto) 0.2 %; Lymphocytes # (auto) 1.68 K/uL (1.2-3.4); Lymphocytes % (auto) 20.8 %; Mean Corpuscular Hemoglobin 33.3 pg (25-34); Mean Corpuscular Hgb Conc 34.2 g/dL (32-36); Mean Corpuscular Volume 97.5 fL (80-100); Mean Platelet Volume 9.6 fL (7.4-10.4); Monocytes # (auto) 0.96 K/uL (0.11-0.59); Monocytes % (auto) 11.9 %; Neutrophils # (auto) 5.21 K/uL (1.4-6.5); Neutrophils % (auto) 64.5 %; Platelet Count 171 K/uL (130-400); RDW Coefficient of Variation 12.8 % (11.5-14.5); RDW Standard Deviation 45.5 fL (36.4-46.3); Red Blood Count 3.93 M/uL (4.7-6.1); Reticulocytes # 0.08 10^6/uL (0.02-0.10); White Blood Count 8.08 K/uL (4.8-10.8)
--- NOTE | 2021-01-02 06:54 | Urology Consultation ---
Date of Consultation January 02, 2021 Assessment & Plan (1) Ureterolithiasis: Patient has been admitted to the hospital by the hospital service: We recommend proceeding as follows: Continue analgesics Continue antiemetics Continue hydration with IV fluids Strain all urine and collect any kidney stones that are retrieved for proper analysis Continue Flomax for expulsive therapy Is unclear if the patient required a procedure intervention as he is pain-free at the present time. We will continue to monitor his progress with further recommendations based on his clinical course as it unfolds. Supervising Physician Co-Signing Physician Notes Agree with above Reviewing his CT I wonder if he may have a small fragment in the mid ureter, however this seems to more likely be in the gonadal vein adjacent to the ureter than in the ureter itself His symptoms are largely improved today I wonder if he passed a stone prior to arrival in the ERhe reports that he had hematuria at that point but it is clearing I think we should observe him Is okay for him to have a diet If he feels well throughout the day today and into tomorrow morningdischarge home and his renal stones can be treated as an outpatient History of Present Illness Reason for Consultation: Nephrolithiasis with obstructive uropathy Attending Physician: Sissy Burton MD History of Present Illness This is a 55-year-old male who presented to the emergency department secondary to left-sided flank pain. Patient notes he has a history of kidney stones for which she has had to have lithotripsy in the past but he has been doing well for quite some time. Yesterday he developed some left-sided flank pain. He did have one episode of nausea vomiting. He denies any fevers, shakes, chills. Patient denies any dysuria but did report some hematuria. He denies any urinary retention. Upon presentation to the emergency department patient did have labs and imaging which I independently reviewed. CT scan of the abdomen and pelvis showed the patient had 3 left renal stones measuring 4, 5, and 6 mm respectively resulting in mild hydronephrosis. He had labs consisting of a CBC where his white blood cell count was normal. His hemoglobin is noted to be 13.1 and his platelet count was noted that was within the normal range. Urinalysis showed 3+ blood. There is no evidence of UTI. He did have a Covid test that was negative. At time of admission he was noted to have a normal creatinine of 1.3. At the time of my interview the patient was resting comfortably in bed, he was in no distress, and his pain had largely resolved. Allergies Allergy/AdvReac Type Severity Reaction Status Date / Time No Known Allergies Allergy Verified 01/01/21 00:18 Home Medications Medication Instructions Recorded Confirmed Type lancets #50 ea 10/09/19 01/01/21 History metformin 500 mg PO BID 03/07/20 01/01/21 History multivitamin 1 tab PO QAM 03/07/20 01/01/21 History sildenafil (pulm.hypertension) 20 mg PO UD 03/07/20 01/01/21 History tamsulosin [Flomax] 0.4 mg PO QAM 03/10/20 01/01/21 History cyanocobalamin (vitamin B-12) 1,000 mcg PO QAM 03/29/20 01/01/21 History ascorbic acid (vitamin C) [Vitamin 500 mg PO DAILY 01/01/21 01/01/21 History C] lisinopril 20 mg PO DAILY 01/01/21 01/01/21 History Patient History Medical History Diabetes mellitus, type 2 Hypertension Kidney stones Sleep apnea CPAP Surgical History H/O eye surgery LEFT (METAL REMOVED) H/O umbilical hernia repair H/O vasectomy History of arthroscopic knee surgery LEFT History of colonoscopy History of lithotripsy History of tonsillectomy S/P rotator cuff repair left [place] teeth removed Family History Father Diabetes Heart disease Uncle Heart disease Myocardial infarction Grandfather Heart disease Brother Kidney stones Grandmother Breast cancer Father Family history of diabetes mellitus Grandfather (Maternal) Family history of diabetes mellitus Grandfather (Paternal) Family history of diabetes mellitus Social History Smoking Status: Former smoker Second Hand Exposure: No; Do You Dip or Chew Tobacco: No; Tobacco Cessation Education Requested by Patient: No Hx Alcohol Use: Yes Alcohol type: hard liquor Hx Substance Use: No Preferred Language: [place] Citizen Communication Ability: Effective Sixth Grade Teacher Required: No Beliefs That Will Affect Care: None marital status: Current Living Situation: Spouse current occupational status: retired 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 Other Information That Helps Us Care for You: No Feels Safe at Home: Yes Safety Concerns: Feels Safe At This Time Assistive Devices: None Review of Systems Constitutional: no fever and no chills Eyes: no diplopia Ear, Nose, Mouth, Throat: no ear pain Respiratory: no cough and no dyspnea Cardiovascular: no chest pain Gastrointestinal: no abdominal pain Genitourinary: + hematuria; no dysuria Musculoskeletal: no back pain Integumentary: no rash Neurologic: no localized weakness Physical Exam Constitutional: well developed and well nourished; no acute distress Eyes: no conjunctival abnormality ENMT: Ears: no hearing impairment Neck: trachea midline Respiratory: normal respiratory effort, lungs clear to auscultation Cardiovascular: Rate/Rhythm: regular rate and regular rhythm Gastrointestinal (Abdomen): Percussion/Palpation: abdomen soft; abdomen nontender Musculoskeletal: No calf tenderness Skin: no rashes, warm and dry Psychiatric: A+Ox3, euthymic affect Genitourinary: no CVA tenderness Results & Data ([facility]) Vital Signs (Past 12 Hours) Vital Signs Temp Pulse Pulse Resp BP BP Pulse Ox 01/02/21 05:09 72 01/02/21 04:00 36.8 C 71 18 143/83 H 96 01/02/21 02:46 37.0 C 74 20 158/84 H 96 01/02/21 01:01 74 17 159/81 H 01/02/21 01:00 71 15 176/90 H 01/02/21 00:30 72 20 142/77 H 01/02/21 00:00 73 20 156/82 H 01/01/21 23:46 78 15 179/84 H 01/01/21 23:00 87 18 158/83 H 01/01/21 22:47 89 22 154/82 H 01/01/21 21:32 37.2 C 93 H 18 205/103 H 97 PG Care Time/CCT Total # of Minutes Spent Total Time Spent with Patient: Total time spent is greater than 50% in coordination of care (as documented) at patient's floor/unit and/or counseling patient: Coding Level of Care Code 71724 Inpt Consult Level 5 Diagnoses Ureterolithiasis N20.1
[2021-01-02 07:03] LABS: Albumin Level 3.6 gm/dl (3.4-5.0); BUN Creatinine Ratio 12.4 (10-20); Calcium 9.1 mg/dl (8.5-10.1); Est GFR (African American) 71.2 ml/min; Est GFR (Non-African American) 61.4 ml/min; Potassium 4.3 mmol/L (3.5-5.1)
[2021-01-02 07:06] LABS: Bilirubin Direct 0.1 mg/dl (0-0.2); Bilirubin,Total 0.7 mg/dl (0.2-1); Ferritin 213.7 ng/ml (8-388); Globulin 3.4 gm/dl (2.5-4.0)
[2021-01-02] MEDS: CYANOCOBALAMIN 500 MCG TABLET (VITAMIN B-12) PO SCH (07:32)
[2021-01-02] MEDS: MULTIVITAMIN TAB PO SCH (07:32)
--- NOTE | 2021-01-02 08:16 | CT Scan Report ---
CT SCAN OF THE ABDOMEN AND PELVIS WITHOUT CONTRAST CLINICAL HISTORY: flank pain COMPARISON STUDY: March 07, 2020. TECHNIQUE: CT scan of the abdomen and pelvis was performed from the lung bases to the proximal femurs . Images are reviewed in the axial, sagittal, and coronal planes. IV contrast was not administered fo r this examination. A dose lowering technique was utilized adhering to the principles of ALARA. CT DOSE: 1368.24 mGy.cm FINDINGS: Lower chest: The heart is normal in size and configuration, without pericardial effusion. The lung ba ses and pleural spaces are clear. Liver: Diffuse decrease in attenuation of liver parenchyma without evidence of focal lesions or intra hepatic biliary dilatation. Liver is enlarged. Gallbladder: Unremarkable. Spleen: Normal in size and attenuation. Pancreas: Unremarkable. Adrenal glands: Right adrenal gland is unremarkable. Redemonstration of 1.5 cm left adrenal angiomyol ipoma. Kidneys: No evidence of hydronephrosis on the right. Few small cysts are seen within right renal pare nchyma. Multiple calculi within left renal pelvis associated with mild hydronephrosis, largest calculus is me asuring 7 mm in size. Minimal left perinephric stranding which also extends to the proximal aspect of nondilated left ureter. No definite ureterolithiasis is seen. Bowel: Bowel loops are nondilated. Evaluation is limited due to lack of contrast. Appendix shows norm al morphology and gas filled. Peritoneum: There is no intraperitoneal free air or abdominal ascites. Vasculature: The abdominal aorta is normal in course and caliber. Adenopathy: None. Pelvic viscera: Urinary bladder is adequately filled with urine. Mild enlargement of the prostate gla nd and seminal vesicles Skeletal structures: Degenerative changes of the spine. Minimal anterolisthesis of L5 on S1. Spondylo lysis involving L5 level. IMPRESSION: 1. Mild hydronephrosis and inflammatory changes surrounding left kidney and proximal left ureter. Mu ltiple calculi are seen within left renal pelvis. Nondilated left ureter. Findings might represent pa ssed calculus. 2. Spondylolysis and mild spondylolisthesis involving L5 level. 3. Hepatomegaly and hepatic steatosis. 4. Stable left adrenal angiomyolipoma. 5. Normal appendix. 6. The rest of findings as above. ACT 112: Negative or not required by law. The above report was generated using voice recognition software. It may contain grammatical, syntax o r spelling errors. Electronically signed by: Buffy Woodall DO 01/02/2021 8:15 AM
[2021-01-02] MEDS ORDERED: Nursing to Pharmacy Communication SCH (09:00)
[2021-01-02 09:06] LABS: Folate (Folic Acid) > 20.00 ng/ml (>5.38); Vitamin B12 599 pg/ml (193-986)
[2021-01-02] MEDS ORDERED: KETOROLAC TROMETHAMINE 15 MG/ML VIAL IV ONE (09:10)
--- NOTE | 2021-01-02 13:08 | Electrocardiogram Report ---
Test Reason : Blood Pressure : / mmHG Vent. Rate : 075 BPM Atrial Rate : 075 BPM P-R Int : 200 ms QRS Dur : 084 ms QT Int : 368 ms P-R-T Axes : 000 135 110 degrees QTc Int : 410 ms Likely limb lead reversal. Normal sinus rhythm Left posterior fascicular block Abnormal ECG When compared with ECG of 10-MAR-2020 11:56, Nonspecific T wave abnormality now evident in Inferior leads Confirmed by Clayton Rowley ([id number]) on 01/02/2021 1:08:18 PM Referred By: REFERRED SELF Confirmed By:Alexei Rowley
[2021-01-02] MEDS ORDERED: bisacodyL 5 MG TABEC PO PRN (16:47)
[2021-01-02] MEDS: KETOROLAC TROMETHAMINE 15 MG/ML VIAL IV PRN (17:23)
--- NOTE | 2021-01-02 18:56 | Hospitalist Progress Note ---
Date of Service January 02, 2021 Assessment & Plan (1) Ureterolithiasis: Present on admission with flank pain associated with hematuria CT abd/pelvis showed no evidence of hydronephrosis on the right. Multiple calculi within left renal pelvis associated with mild hydronephrosis, largest calculus is measuring 7 mm in size. Minimal left perinephric stranding which also extends to the proximal aspect of nondilated left ureter. UA positive for blood Continue pain control and IV hydration Urology on board Continue Flomax for expulsive therapy Will keep n.p.o. after midnight in case patient will require any urology procedure Hypertension Urgency BP increased to 205/103 on admission Possible related to pain Continue Lisinopril 20mg daily Continue monitor BP Diabetes Hba1c pending Metformin on hold during the hospital course On insulin sliding scale Continue monitor BS DARIO Continue Cpap DVT px On SCD Code status Full code Admission and Anticipated Discharge Date Admission Date: January 01, 2021 Subjective Patient was seen and examined for follow-up of flank pain Lying in bed with no distress with family member at bedside Patient said that he continues to have flank pain He said that Toradol helps better with the pain compared to the narcotic. Denies any chest pain, palpitation, dizziness, shortness of breath, Review of Systems Review of Systems: All systems reviewed & are unremarkable except as noted in Subjective Physical Exam Physical Exam: General- No acute distress Head- atraumatic Eyes- PERRL, EOMI, ENT- oropharynx clear Neck- supple, no JVD Lungs- clear to auscultation Heart- regular rhythm; no murmur Abdomen- normal bowel sounds, soft, nontender Extremities- no calf tenderness Neuro- alert, oriented x 3; PERRL, EOMI; no facial palsy; no dysarthria Skin- warm & dry continues to use Results & Data Results & Data ([facility]) Vital Signs (Past 12 Hours) Vital Signs Temp Pulse Resp BP Pulse Ox 01/02/21 16:00 36.7 C 77 18 165/93 H 98 01/02/21 12:30 37.2 C 77 18 145/79 H 96 01/02/21 07:30 36.9 C 75 18 175/91 H 98
[2021-01-02] MEDS: TAMSULOSIN HCL 0.4 MG CAP PO SCH (21:04)
[2021-01-03] MEDS ORDERED: Nursing to Pharmacy Communication SCH ×2 (01:15→10:00)
[2021-01-03] MEDS: KETOROLAC TROMETHAMINE 15 MG/ML VIAL IV PRN (02:13)
[2021-01-03] MEDS: SODIUM CHLORIDE 0.9% 1000ML 1,000 ML IV SCH ×2 (05:18→19:42)
[2021-01-03] MEDS ORDERED: INSULIN ASPART 100 UNITS/ML 3 ML PEN SC SCH (06:00)
[2021-01-03 06:44] LABS: Estimated Average Glucose 171 mg/dl; Hemoglobin A1C 7.6 % (4.5-5.6)
[2021-01-03 07:32] LABS: BUN Creatinine Ratio 14.9 (10-20); Calcium 8.8 mg/dl (8.5-10.1); Creatinine Clr Calc Pharmacy 98.9 ml/min; Est GFR (African American) 95.5 ml/min; Est GFR (Non-African American) 82.4 ml/min
[2021-01-03] MEDS: MULTIVITAMIN TAB PO SCH (07:34)
[2021-01-03] MEDS: CYANOCOBALAMIN 500 MCG TABLET (VITAMIN B-12) PO SCH (07:34)
[2021-01-03] MEDS: INSULIN GLARGINE SOLOSTAR 100 UNITS/ML 3 ML PEN SC SCH (07:35)
--- NOTE | 2021-01-03 08:48 | Urology Progress Note ---
Date of Service January 03, 2021 Assessment & Plan (1) Left flank pain: (2) Kidney stones: 55 yo M admitted for left flank pain and hematuria. - Afebrile, nontoxic, lab work reviewed - creatinine and WBC within normal limits - Pain continues to be intermittent, controlled at time of exam - No acute intervention today, okay to give diet today and make NPO again at HI for reassessment - Check SARAH for further evaluation - Strain all urine - Continue supportive care and prn pain management - If he continues to feel well, he can follow-up with our service outpatient regarding his renal stones - Please consult our service urgently if patient develops fever >101F, intractable pain or nausea, as this will necessitate urgent surgical intervention. We will continue to follow along with primary team. Admission and Anticipated Discharge Date Admission Date: January 01, 2021 Subjective Pt awake, sitting up in bed No left flank pain at present Last pain medication was Ketorolac on 01/03 @0213 Denies stone passage Voiding spontaneously. No dysuria or hematuria. No abdominal pain, nausea or vomiting. He is NPO at present. No fever or chills. No additional concerns today. Chart review: Afebrile, Tmax 37.9 on 01/02 at 2300. Creatinine 1.02, WBC 8.08, Hgb 13.1. KUB this morning showed left nephrolithiasis. No definite ureteral calculi visualized. Review of Systems Constitutional: as per Subjective / HPI Gastrointestinal: as per Subjective / HPI Genitourinary: + as per Subjective / HPI Physical Exam Constitutional: well developed, well nourished and + obese; no acute distress and not ill appearing Respiratory: normal respiratory effort and able to speak in complete sentences; no respiratory distress and no labored breathing Cardiovascular: Extremities: no pedal edema Gastrointestinal (Abdomen): Inspection/Auscultation: abdomen normal to inspection; abdomen not distended Percussion/Palpation: abdomen soft; abdomen nontender and no guarding Musculoskeletal: Head/Neck/Chest: normocephalic and head atraumatic Skin: no rashes, warm and dry Neurologic: moves all extremities and awake Psychiatric: A+Ox3, euthymic affect Genitourinary: no CVA tenderness Results & Data ([facility]) Vital Signs (Past 12 Hours) Vital Signs Temp Pulse Pulse Resp BP BP Pulse Ox 01/03/21 06:52 37 C 74 16 166/90 H 96 01/03/21 03:04 37.3 C 82 18 163/87 H 94 01/02/21 23:30 78 12 96 01/02/21 23:00 37.9 C H 73 16 166/82 H 97 PG Care Time/CCT Total # of Minutes Spent Total Time Spent with Patient: Total time spent is greater than 50% in coordination of care (as documented) at patient's floor/unit and/or counseling patient: Coding Level of Care Code 76319 Subseq Hosp Care Lvl 2 Diagnoses Left flank pain R10.9 Kidney stones N20.0
[2021-01-03] MEDS ORDERED: TAMSULOSIN HCL 0.4 MG CAP PO SCH (09:00)
[2021-01-03] MEDS ORDERED: lisinopril 20 MG TAB PO SCH (09:00)
--- NOTE | 2021-01-03 09:57 | XRay Report ---
XR KUB/Abdomen 1 view CLINICAL HISTORY: Nephrolithiasis COMPARISON STUDY: 12/31/2020 FINDINGS: There is no pathologic bowel dilatation. 3 calcifications project over the lower pole the l eft kidney, the largest of which measures 4 mm. A 4 mm density projected over the inferior margin of the left SI joint, likely represents an area of bony sclerosis. IMPRESSION: 1. Nonobstructive bowel gas pattern 2. Left-sided nephrolithiasis 3. No definite ureteral calculi visualized on conventional radiographic imaging ACT 112: Negative or not required by law. Electronically signed by: Sandro Whitlock M.D. 01/03/2021 9:56 AM
--- NOTE | 2021-01-03 11:11 | Ultrasound Report ---
EXAMINATION: RENAL ULTRASOUND CLINICAL HISTORY: Left flank pain COMPARISON STUDY: December 31, 2020 FINDINGS: The right kidney measures 14.1. The left kidney measures 14.7. There is no evidence of hyd ronephrosis. -1.1 x 0.7 x 1.3 cm hyperechoic lesion within lower pole of the right kidney is unchanged since prior , shows no definite posterior shadowing and might represent small angiomyolipoma which is unchanged s shawanda prior study. Second hyperechoic lesion within the right kidney that was seen on recent prior michael dy is not visualized today. -There is 1.4 x 1.2 x 1.4 cm hypoechoic lesion within lower pole of the right kidney which might repr esent simple cysts. No renal calculi are seen on current exam. No bladder abnormalities are visualized. Bilateral ureteral jets were visualized. IMPRESSION : 1. Previously seen nephrolithiasis is not visualized on current exam. 2. Small right renal cyst. 3. Hyperechoic lesions within right kidney, appear less conspicuous on current exam and might repres ent small angiomyolipomas. ACT 112: Negative or not required by law. The above report was generated using voice recognition software. It may contain grammatical, syntax o r spelling errors. Electronically signed by: Buffy Woodall DO 01/03/2021 11:09 AM
[2021-01-03] MEDS: INSULIN ASPART 100 UNITS/ML 3 ML PEN SC SCH ×3 (12:12→21:01)
--- NOTE | 2021-01-03 17:44 | Hospitalist Progress Note ---
Date of Service January 03, 2021 Assessment & Plan (1) Ureterolithiasis: Present on admission with flank pain associated with hematuria CT abd/pelvis showed no evidence of hydronephrosis on the right. Multiple calculi within left renal pelvis associated with mild hydronephrosis, largest calculus is measuring 7 mm in size. Minimal left perinephric stranding which also extends to the proximal aspect of nondilated left ureter. Renal u/s done the previously seen nephrolithiasis is not visualized KUB showed 3 calcifications project over the lower pole the left kidney, the largest of which measures 4 mm. UA positive for blood urine cx no growth Continue pain control and IV hydration Urology on board Continue Flomax for expulsive therapy Will keep n.p.o. after midnight in case patient will require any urology procedure Hypertension Urgency BP increased to 205/103 on admission Possible related to pain Continue Lisinopril 20mg daily Continue monitor BP Diabetes Hba1c 7.6 today Metformin on hold during the hospital course On insulin sliding scale Continue monitor BS DARIO Continue Cpap DVT px On SCD Code status Full code Admission and Anticipated Discharge Date Admission Date: January 01, 2021 Subjective Pt was seen and examined for flank pain Lying in bed with no distress Pt said that he feels much better He said that he has no pain today Spoke to and update and answered all her questions denies any chest pain, palpitation, dizziness and SOB Review of Systems Review of Systems: All systems reviewed & are unremarkable except as noted in Subjective Physical Exam Physical Exam: General- No acute distress Head- atraumatic Eyes- PERRL, EOMI, ENT- oropharynx clear Neck- supple, no JVD Lungs- clear to auscultation Heart- regular rhythm; no murmur Abdomen- normal bowel sounds, soft, nontender Extremities- no calf tenderness Neuro- alert, oriented x 3; PERRL, EOMI; no facial palsy; no dysarthria Skin- warm & dry continues to use Results & Data Results & Data ([facility]) Vital Signs (Past 12 Hours) Vital Signs Temp Pulse Pulse Resp BP Pulse Ox 01/03/21 15:06 37.3 C 69 20 163/91 H 96 01/03/21 11:04 36.8 C 80 18 160/89 H 96 01/03/21 06:52 37 C 74 16 166/90 H 96
[2021-01-03] MEDS: TAMSULOSIN HCL 0.4 MG CAP PO SCH (21:02)
[2021-01-04] MEDS ORDERED: lisinopril 40 MG TAB PO SCH (01:35)
[2021-01-04] MEDS: INSULIN ASPART 100 UNITS/ML 3 ML PEN SC SCH ×2 (08:15→13:19)
[2021-01-04] MEDS: CYANOCOBALAMIN 500 MCG TABLET (VITAMIN B-12) PO SCH (08:16)
[2021-01-04] MEDS: INSULIN GLARGINE SOLOSTAR 100 UNITS/ML 3 ML PEN SC SCH (08:17)
[2021-01-04] MEDS: MULTIVITAMIN TAB PO SCH (08:17)
--- NOTE | 2021-01-04 08:20 | Urology Progress Note ---
Date of Service January 04, 2021 Assessment & Plan (1) Left flank pain: (2) Kidney stones: 55 yo M admitted for left flank pain and hematuria. - Doing well, left flank pain resolved - Afebrile, creatinine and WBC within normal limits on 01/03 - SARAH showed no hydronephrosis; no ureteral calculi visualized on KUB - No acute surgical intervention today - okay to resume diet - Okay to d/c home from perspective when medically stable - Will arrange outpatient follow-up with our service for left renal stones Thank you for allowing us to participate in the acute care of Mr. Ferrera. Please reconsult us with additional questions, concerns or changes in patient status. Admission and Anticipated Discharge Date Admission Date: January 01, 2021 Subjective Pt awake and sitting at the side of the bed. No issues overnight. Feeling well. No flank pain. No dysuria or hematuria. No f/c/n/v. Chart review: Afebrile. No new lab work at time of visit. SARAH 01/03/21 showed no hydronephrosis. No additional concerns today. Review of Systems Constitutional: as per Subjective / HPI Gastrointestinal: as per Subjective / HPI Genitourinary: + as per Subjective / HPI Physical Exam Constitutional: well developed, well nourished and + obese; no acute distress and not ill appearing Respiratory: normal respiratory effort and able to speak in complete sentences; no respiratory distress and no labored breathing Cardiovascular: Extremities: no pedal edema Gastrointestinal (Abdomen): Inspection/Auscultation: abdomen normal to inspection; abdomen not distended Percussion/Palpation: abdomen soft; abdomen nontender Musculoskeletal: Head/Neck/Chest: normocephalic and head atraumatic Extremities: extremities normal to inspection Skin: no rashes, warm and dry Neurologic: moves all extremities and awake Psychiatric: Orientation: alert and oriented x 3 Genitourinary: no CVA tenderness Results & Data ([facility]) Vital Signs (Past 12 Hours) Vital Signs Temp Pulse Pulse Pulse Resp BP BP 01/04/21 08:12 168/106 H 01/04/21 07:48 36.7 C 71 20 123/67 01/04/21 04:01 70 18 01/04/21 03:41 36.7 C 70 18 133/71 01/03/21 23:53 65 01/03/21 23:22 37.1 C 70 18 168/98 H 01/03/21 23:15 66 10 L Pulse Ox 01/04/21 08:12 01/04/21 07:48 95 01/04/21 04:01 93 01/04/21 03:41 97 01/03/21 23:53 01/03/21 23:22 96 01/03/21 23:15 92
[2021-01-04] MEDS ORDERED: hydrALAZINE HCL 20 MG/ML VIAL IV STA (08:37)
--- NOTE | 2021-01-04 13:27 | Hospitalist Progress Note ---
Date of Service January 04, 2021 Assessment & Plan (1) Ureterolithiasis: Present on admission with flank pain associated with hematuria CT abd/pelvis showed no evidence of hydronephrosis on the right. Multiple calculi within left renal pelvis associated with mild hydronephrosis, largest calculus is measuring 7 mm in size. Minimal left perinephric stranding which also extends to the proximal aspect of nondilated left ureter. Renal u/s done the previously seen nephrolithiasis is not visualized KUB showed 3 calcifications project over the lower pole the left kidney, the largest of which measures 4 mm. UA positive for blood urine cx no growth On IV Toradol for pain, but has not been taking any med since pain resolves Urology on board No acute surgical intervention as per urology Continue Flomax for expulsive therapy Urology will arrange for outpatient follow-up for the left renal stones Okay from urology standpoint to discharge home Hypertension Urgency BP increased to 205/103 on admission BP not controlled Lisinopril 40mg daily. May consider to add a second agent such as amlodipine Continue monitor BP and bring your BP log at the next appointment with your PCP Diabetes Hba1c 7.6 today Metformin on hold during the hospital course Will resume Metformin on discharge (consider to increase to 1000mg daily and 500mg HS for a week, then if tolerates, will tiitrate to 1g BID On insulin sliding scale Continue monitor BS DARIO Continue Cpap DVT px On SCD Code status Full code Disposition Discharge home today Admission and Anticipated Discharge Date Admission Date: January 01, 2021 Subjective patient was seen and examined for follow-up of flank pain Standing in the room with no acute distress He has been walking in the hallway with no discomfort Denies any chest pain, palpitation, dizziness, shortness of breath. Review of Systems Review of Systems: All systems reviewed & are unremarkable except as noted in Subjective Physical Exam Physical Exam: General- No acute distress Head- atraumatic Eyes- PERRL, EOMI, ENT- oropharynx clear Neck- supple, no JVD Lungs- clear to auscultation Heart- regular rhythm; no murmur Abdomen- normal bowel sounds, soft, nontender Extremities- no calf tenderness Neuro- alert, oriented x 3; PERRL, EOMI; no facial palsy; no dysarthria Skin- warm & dry Results & Data Results & Data ([facility]) Vital Signs (Past 12 Hours) Vital Signs Temp Pulse Pulse Pulse Resp BP BP 01/04/21 12:00 36.5 C 92 H 18 154/73 H 01/04/21 09:00 58 L 01/04/21 08:12 168/106 H 01/04/21 07:48 36.7 C 71 20 123/67 01/04/21 04:01 70 18 01/04/21 03:41 36.7 C 70 18 133/71 Pulse Ox 01/04/21 12:00 92 01/04/21 09:00 01/04/21 08:12 01/04/21 07:48 95 01/04/21 04:01 93 01/04/21 03:41 97
--- NOTE | 2021-01-12 01:00 | Discharge Summary ---
Date of Service January 04, 2021 Admission HPI Per Admitting Provider History obtained from patient, family, and records. Medical history significant for hypertension, hyperlipidemia, DM2 on oral medications, DARIO on CPAP, urolithiasis, past tobacco abuse. Last confinement February 2020 for right ureteric stone status post stent placement. Yesterday morning patient noted achy left flank pain reminiscent of kidney stones. No fever, no chills. Patient brought to ER by for evaluation. Central echogenic nodules on the right kidney possible complex cysts. No hydronephrosis or evidence of ureteral obstruction. Patient sent home. At home, patient noted worsening discomfort followed by hematuria, and emesis. No chest pain, no S OB, no headache. No fever, no chills. Patient returned to ER for evaluation. Medical History as above Surgical History : Knee arthroscopy, ESWL, dental surgery, shoulder surgery Family History : Kidney stones, DM, heart disease, stroke Personal/Social history : Past tobacco abuse, occasional EtOH intake, retired [employer] Admission Exam Per Admitting Provider GENERAL: Comfortable, pleasant, obese, no respiratory distress SKIN: Normal color, warm HEENT: Alopecia, [place] palpebral conjunctivae, no ptosis, dry buccal mucosa NECK : Supple, short neck, no tenderness CHEST : CTA, no tenderness HEART : RRR, no obvious murmurs ABDOMEN: Some distention, nontender BACK : Minimal left flank tenderness EXTREMITIES : No LE swelling/tenderness, no other conspicuous deformities noted NEUROLOGIC : Coherent, no facial asymmetry, no other gross focality Principal Diagnosis Ureterolithiasis Hypertension Urgency Diabetes type 2 Discharge Exam General- No acute distress Head- atraumatic Eyes- PERRL, EOMI, ENT- oropharynx clear Neck- supple, no JVD Lungs- clear to auscultation Heart- regular rhythm; no murmur Abdomen- normal bowel sounds, soft, nontender Extremities- no calf tenderness Neuro- alert, oriented x 3; PERRL, EOMI; no facial palsy; no dysarthria Skin- warm & dry continues to use Discharge Data Allergies Allergy/AdvReac Type Severity Reaction Status Date / Time No Known Allergies Allergy Verified 01/01/21 00:18 Consultations 01/01/21 22:41 ED Decision to Admit Stat 01/02/21 01:42 Consult Urology Routine Ordered Studies 01/01/21 21:37 CT abd pelvis wo con Urgent 01/03/21 09:10 US renal/blad retro comp Routine EXAMINATION: RENAL ULTRASOUND CLINICAL HISTORY: Left flank pain COMPARISON STUDY: December 31, 2020 FINDINGS: The right kidney measures 14.1. The left kidney measures 14.7. There is no evidence of hydronephrosis. -1.1 x 0.7 x 1.3 cm hyperechoic lesion within lower pole of the right kidney is unchanged since prior, shows no definite posterior shadowing and might represent small angiomyolipoma which is unchanged since prior study. Second hyperechoic lesion within the right kidney that was seen on recent prior study is not visualized today. -There is 1.4 x 1.2 x 1.4 cm hypoechoic lesion within lower pole of the right kidney which might represent simple cysts. No renal calculi are seen on current exam. No bladder abnormalities are visualized. Bilateral ureteral jets were visualized. IMPRESSION : 1. Previously seen nephrolithiasis is not visualized on current exam. 2. Small right renal cyst. 3. Hyperechoic lesions within right kidney, appear less conspicuous on current exam and might represent small angiomyolipomas. ACT 112: Negative or not required by law. The above report was generated using voice recognition software. It may contain grammatical, syntax or spelling errors. Electronically signed by: Buffy Woodall DO 01/03/2021 11:09 AM Dictated: 01/03/21 1101Transcribed: 01/03/21 1103 XR KUB/Abdomen 1 view CLINICAL HISTORY: Nephrolithiasis COMPARISON STUDY: 12/31/2020 FINDINGS: There is no pathologic bowel dilatation. 3 calcifications project over the lower pole the left kidney, the largest of which measures 4 mm. A 4 mm density projected over the inferior margin of the left SI joint, likely represents an area of bony sclerosis. IMPRESSION: 1. Nonobstructive bowel gas pattern 2. Left-sided nephrolithiasis 3. No definite ureteral calculi visualized on conventional radiographic imaging ACT 112: Negative or not required by law. Electronically signed by: Sandro Whitlock M.D. 01/03/2021 9:56 AM Dictated: 01/03/21 0954Transcribed: 01/03/[address] SCAN OF THE ABDOMEN AND PELVIS WITHOUT CONTRAST CLINICAL HISTORY: flank pain COMPARISON STUDY: March 07, 2020. TECHNIQUE: CT scan of the abdomen and pelvis was performed from the lung bases to the proximal femurs. Images are reviewed in the axial, sagittal, and coronal planes. IV contrast was not administered for this examination. A dose lowering technique was utilized adhering to the principles of ALARA. CT DOSE: 1368.24 mGy.cm FINDINGS: Lower chest: The heart is normal in size and configuration, without pericardial effusion. The lung bases and pleural spaces are clear. Liver: Diffuse decrease in attenuation of liver parenchyma without evidence of focal lesions or intrahepatic biliary dilatation. Liver is enlarged. Gallbladder: Unremarkable. Spleen: Normal in size and attenuation. Pancreas: Unremarkable. Adrenal glands: Right adrenal gland is unremarkable. Redemonstration of 1.5 cm left adrenal angiomyolipoma. Kidneys: No evidence of hydronephrosis on the right. Few small cysts are seen within right renal parenchyma. Multiple calculi within left renal pelvis associated with mild hydronephrosis, largest calculus is measuring 7 mm in size. Minimal left perinephric stranding which also extends to the proximal aspect of nondilated left ureter. No definite ureterolithiasis is seen. Bowel: Bowel loops are nondilated. Evaluation is limited due to lack of contrast. Appendix shows normal morphology and gas filled. Peritoneum: There is no intraperitoneal free air or abdominal ascites. Vasculature: The abdominal aorta is normal in course and caliber. Adenopathy: None. Pelvic viscera: Urinary bladder is adequately filled with urine. Mild enlargement of the prostate gland and seminal vesicles Skeletal structures: Degenerative changes of the spine. Minimal anterolisthesis of L5 on S1. Spondylolysis involving L5 level. IMPRESSION: 1. Mild hydronephrosis and inflammatory changes surrounding left kidney and proximal left ureter. Multiple calculi are seen within left renal pelvis. Nondilated left ureter. Findings might represent passed calculus. 2. Spondylolysis and mild spondylolisthesis involving L5 level. 3. Hepatomegaly and hepatic steatosis. 4. Stable left adrenal angiomyolipoma. 5. Normal appendix. 6. The rest of findings as above. ACT 112: Negative or not required by law. The above report was generated using voice recognition software. It may contain grammatical, syntax or spelling errors. Electronically signed by: Buffy Woodall DO 01/02/2021 8:15 AM Dictated: 01/02/21803Transcribed: 01/02/21803 Hospital Course (1) Ureterolithiasis: Present on admission with flank pain associated with hematuria CT abd/pelvis showed no evidence of hydronephrosis on the right. Multiple calculi within left renal pelvis associated with mild hydronephrosis, largest calculus is measuring 7 mm in size. Minimal left perinephric stranding which also extends to the proximal aspect of nondilated left ureter. Renal u/s done the previously seen nephrolithiasis is not visualized KUB showed 3 calcifications project over the lower pole the left kidney, the largest of which measures 4 mm. UA positive for blood urine cx no growth On IV Toradol for pain, but has not been taking any med since pain resolves Urology on board No acute surgical intervention as per urology Continue Flomax for expulsive therapy Urology will arrange for outpatient follow-up for the left renal stones Okay from urology standpoint to discharge home Hypertension Urgency BP increased to 205/103 on admission BP not controlled Lisinopril 40mg daily. May consider to add a second agent such as amlodipine Continue monitor BP and bring your BP log at the next appointment with your PCP Diabetes Hba1c 7.6 today Metformin on hold during the hospital course Will resume Metformin on discharge (consider to increase to 1000mg daily and 500mg HS for a week, then if tolerates, will tiitrate to 1g BID On insulin sliding scale Continue monitor BS DARIO Continue Cpap DVT px On SCD Code status Full code Disposition Discharge home today Total Time Total Time Spent Total Time Spent (In Minutes): 35 minutes Total Time Includes: Examination of the Patient, Discharge Planning, Medication Reconciliation, Communication With Other Providers and Other Discharge Plan Discharge Items Patient Disposition: Home - Self-Care Reason For Visit: HTN URG, OBSTRUCTIVE UROPATHY Discharge Diagnosis: Ureterolithiasis Hypertension Urgency Diabetes type 2 Condition on Discharge: Good Activity: Resume your previous activity Non-emergency contact: Primary Care Provider Call non-emergency contact if: you have any medication questions Follow-up/Referrals: Ethan Diez MD [Primary Care Provider] - (Date & Time 01/10/2021 9:00 AM Provider Soila Varela MD [facility] ) Diet: Carb Consistent or DM2 Addtl Attending Provider Instructions: Follow up with your primary care provider Soila Varela (Dr. Diez's colleague) on 01/10/2021 at9:00 AM at the [facility] clinic Follow up with your urology for the left renal stones Lisinopril increased to 40mg daily Continue monitor your blood pressure and bring your blood pressure log at your next appointment with the provider Consider to increase Metformin 1000mg in the morning and 500mg at night for 1 week, then then if able to tolerate, Metformin can titrate to 1000mg twice a day Follow up a health diabetes diet and limited concentrated sweet intake Seek medical attention if your flank pain reoccurs Pending Studies at Discharge: No Stand-Alone Forms: [facility] [email or web address], Smoking Cessation Medications and DC Order Prescriptions: New lisinopril [Zestril] 40 mg Tablet 40 mg PO DAILY 30 Days Qty: 30 RF: 0 tamsulosin 0.4 mg Capsule 0.4 mg PO QAM 30 Days Qty: 30 RF: 0 Continued (DME) lancets [OneTouch UltraSoft Lancets] Misc See Rx Instructions .ROUTE .MEDSUPPLY Qty: 50 RF: 0 sildenafil (pulm.hypertension) 20 mg tablet 20 mg PO UD RF: 0 multivitamin Tablet 1 tab PO QAM RF: 0 cyanocobalamin (vitamin B-12) 1,000 mcg Tablet 1,000 mcg PO QAM RF: 0 ascorbic acid (vitamin C) [Vitamin C] 500 mg Tablet 500 mg PO DAILY RF: 0 metformin 500 mg tablet 500 mg PO BID Qty: 60 RF: 0 Discontinued lisinopril 20 mg tablet 20 mg PO DAILY RF: 0 Discharge Orders: Discharge Order (Routine); Ordered 01/04/21 Ordered By: Sissy Nolan/Other Patient Handouts: Managing Type 2 Diabetes, A1C Admission Data Admit Date/Time: 01/01/21 23:59 Attending Provider: Sissy Burton Admit Provider: Lino Ivan Primary Care Provider: Ethan Diez Other Providers: Jared Cárdenas ; Marquise Contreras Other Interventions: Discharge Summary Assessment (RN) Last Done: 01/04/21 13:48
== END 2021-01-04 15:30 | disposition home or self-care (01) | DRG 694 ==
LOC: ED 21:31 → 2N 23:59
DX: Z82.49 Family history of ischemic heart disease and other diseases of the circulatory system; N13.2 Hydronephrosis with renal and ureteral calculous obstruction; Z79.899 Other long term (current) drug therapy; Z84.1 Family history of disorders of kidney and ureter; Z87.442 Personal history of urinary calculi; D64.9 Anemia, unspecified; R31.9 Hematuria, unspecified; Z83.3 Family history of diabetes mellitus; Z77.22 Contact with and (suspected) exposure to environmental tobacco smoke (acute) (chronic); E11.9 Type 2 diabetes mellitus without complications; I10 Essential (primary) hypertension; I16.0 Hypertensive urgency; Z79.84 Long term (current) use of oral hypoglycemic drugs; G47.33 Obstructive sleep apnea (adult) (pediatric)